=== PATIENT | female | born 1930 | race African-American/Black ===

== ENCOUNTER 2016-12-20 00:23 | Inpatient (IN) | payer MEDICARE, BC ==
[~2016-12-20] VITALS: Ht 160 cm; Wt 39.9 kg
[2016-12-20] VITALS (11 sets, daily range): BP systolic 113–173; BP diastolic 59–123
[~2016-12-20 00:23] MED LIST: AMLODIPINE BESYL5 MG ORAL; ASPIRIN81 M3 PO; ASPIRIN81 MG ORAL; ATORVASTATIN CA10 MG ORAL; ATORVASTATIN CA20 MG ORAL; CATAPRES0.1 MG ORAL; CATAPRES0.2 MG ORAL; CLONIDINE0.1 MG ORAL; HYDRALAZINE HCL25 M1 ORAL; LIPITOR10 MG ORAL; LISINOPRIL10 MG ORAL; LISINOPRIL20 MG ORAL; LISINOPRIL5 MG ORAL; METOPROLOL SUCC25 MG ORAL; METOPROLOL SUCC50 MG ORAL; MULTIVITAMINS1 EAC2 ORAL; ZITHROMAX250 MG ORAL
[2016-12-20] MEDS ORDERED: Morphine Sulfate 2mg/ml Inj IVP ONE (00:30)
--- NOTE | 2016-12-20 00:37 | Emergency Room Report ---
History of Present Illness General Chief Complaint: Abdominal Pain Source: Patient, Family Member, Medical Record, EMS Present Illness HPI Is an 86-year-old female with history hypertension. She presents with chief complaint of vomiting abdominal pain. Onset for 2 days. Vomiting is nonbloody nonbilious. No diarrhea. Pain is 8/10. Worse with movement. Decreased appetite. No fever or chills. Denies any chest pain. Allergies: Coded Allergies: NO KNOWN DRUG ALLERGIES (Unverified Allergy, Unknown, 07/14/14) Patient History Past Medical History: see triage record, old chart reviewed, HTN Past Surgical History: other Pertinent Family History: none Social History: Denies: smoking Last Menstrual Period: NONE Now: No Immunizations: other Reviewed Nursing Documentation: PMH: Agreed, PSxH: Agreed Nursing Documentation-PMH Hx Cardiac Problems: Yes Hx Hypertension: Yes Hx Cancer: No Hx Gastrointestinal Problems: No Hx Neurological Problems: Yes Hx Cerebrovascular Accident: Yes - Hx Weakness: Yes Review of Systems Eye: Denies: blurred vision, eye pain ENT: Denies: ear pain, nose congestion, throat swelling Respiratory: Denies: cough, shortness of breath Cardiovascular: Denies: chest pain, palpitations Gastrointestinal: Reports: abdominal pain, nausea, vomiting, Denies: diarrhea Musculoskeletal: Denies: back pain, joint pain Skin: Denies: rash Neurological: Denies: headache, numbness Endocrine: Denies: increased thirst, increased urine Hematologic/Lymphatic: Denies: easy bruising All Other Systems: negative except mentioned in HPI Physical Exam Vital Signs Date Time Temp Pulse Resp B/P Pulse Ox O2 Delivery O2 Flow Rate FiO2 12/20/16 00:16 99.3 104 18 127/66 98 Room Air vitals with tachycardia and low-grade fever Sp02 EP Interpretation: reviewed, normal General Appearance: alert, mild distress, thin, Chronically Ill Head: normocephalic, atraumatic Eyes: bilateral eye EOMI, bilateral eye PERRL ENT: hearing grossly normal, normal pharynx Neck: full range of motion, supple, no meningismus Respiratory: chest non-tender, lungs clear, normal breath sounds Cardiovascular #1: regular rate, rhythm, no murmur Gastrointestinal: normal bowel sounds, no mass, no organomegaly, no bruit, non- distended, tenderness - Diffuse Musculoskeletal: back normal, normal range of motion Neurologic: alert Psychiatric: mood/affect normal Skin: warm/dry Medical Decision Making Diagnostic Impression: Primary Impression: Abdominal pain of unknown etiology Additional Impressions: ACS (acute coronary syndrome) Accelerated hypertension Duodenitis Proteinuria Qualified Codes: R80.9 - Proteinuria, unspecified Dehydration UTI (urinary tract infection) Qualified Codes: N30.00 - Acute cystitis without hematuria ER Course Patient presents with abdominal pain and vomiting. This may be secondary to peptic ulcer disease, ACS, obstruction, acute abdomen to name a few. CT scan unremarkable except for possible peptic ulcer disease. EKG is abnormal with ST depression. First set of troponin negative. Patient has no chest pain. Aspirin given here. Blood pressure control. I discussed the case with Dr. Varela who will be admitting for Dr. Odell. Laboratory Tests Test 12/20/16 00:32 12/20/16 01:00 White Blood Count 13.1 K/UL (4.8-10.8) H Red Blood Count 5.33 M/UL (4.20-5.40) Hemoglobin 16.2 G/DL (12.0-16.0) H Hematocrit 47.2 % (37.0-47.0) H Mean Corpuscular Volume 89 FL (80-99) Mean Corpuscular Hemoglobin 30.4 PG (27.0-31.0) Mean Corpuscular Hemoglobin Concent 34.3 G/DL (32.0-36.0) Red Cell Distribution Width 11.5 % (11.6-14.8) L Platelet Count 310 K/UL (150-450) Mean Platelet Volume 5.8 FL (6.5-10.1) L Neutrophils (%) (Auto) % (45.0-75.0) Lymphocytes (%) (Auto) % (20.0-45.0) Monocytes (%) (Auto) % (1.0-10.0) Eosinophils (%) (Auto) % (0.0-3.0) Basophils (%) (Auto) % (0.0-2.0) Differential Total Cells Counted 100 Neutrophils % (Manual) 87 % (45-75) H Lymphocytes % (Manual) 7 % (20-45) L Monocytes % (Manual) 5 % (1-10) Eosinophils % (Manual) 0 % (0-3) Basophils % (Manual) 0 % (0-2) Band Neutrophils 1 % (0-8) Platelet Estimate Adequate Platelet Morphology Normal Red Blood Cell Morphology Normal Prothrombin Time 10.5 SEC (9.30-11.50) Prothromb Time International Ratio 1.0 (0.9-1.1) Activated Partial Thromboplast Time 25 SEC (23-33) Sodium Level 143 mEQ/L (135-145) Potassium Level 3.5 mEQ/L (3.4-4.9) Chloride Level 95 mEQ/L (98-107) L Carbon Dioxide Level 17 mEQ/L (20-30) L Anion Gap 31 (5-15) H Blood Urea Nitrogen 14 mg/dL (7-23) Creatinine 1.5 mg/dL (0.5-0.9) H Estimat Glomerular Filtration Rate mL/min (>60) Glucose Level 236 mg/dL (74-106) H Calcium Level 9.7 mg/dL (8.6-10.2) Total Bilirubin 0.7 mg/dL (0.0-1.2) Aspartate Amino Transf (AST/SGOT) 25 U/L (5-40) Alanine Aminotransferase (ALT/SGPT) 11 U/L (3-33) Alkaline Phosphatase 122 U/L (35-104) H Troponin I < 0.30 ng/mL (<=0.30) Total Protein 8.0 g/dL (6.6-8.7) Albumin 3.8 g/dL (3.5-5.2) Globulin 4.2 g/dL Albumin/Globulin Ratio 0.9 (1.0-2.7) L Lipase 27 U/L (< 60) Urine Color Pale yellow Urine Appearance Slightly cloudy Urine pH 6.5 (4.5-8.0) Urine Specific [place] 1.010 (1.005-1.035) Urine Protein 3+ (NEGATIVE) H Urine Glucose (UA) 4+ (NEGATIVE) H Urine Ketones 4+ (NEGATIVE) H Urine Occult Blood 2+ (NEGATIVE) H Urine Nitrite Negative (NEGATIVE) Urine Bilirubin Negative (NEGATIVE) Urine Urobilinogen Normal MG/DL (0.0-1.0) Urine Leukocyte Esterase 3+ (NEGATIVE) H Urine RBC 2-4 /HPF (0 - 2) H Urine WBC 5-10 /HPF (0 - 2) H Urine Squamous Epithelial Cells Few /LPF (NONE/OCC) Urine Bacteria Few /HPF (NONE) Lab Results Impression labs unremarkable EKG Diagnostic Results Rate: tachycardiac Rhythm: NSR ST Segments: other - ST depression inferior laterally Rhythm Strip Diag. Results EP Interpretation: yes Rate: 100 Rhythm: NSR, no PVC's, no ectopy Chest X-Ray Diagnostic Results EP Interpretation: Yes Findings: no consolidation, no effusion, no pneumothorax, no acute cardiopulmonary disease Number of Views: 1 CT/MRI/US Diagnostic Results CT/MRI/US Diagnostic Results : Imaging Test Ordered: CT abdomen and pelvis Impression Read by radiologist. Inflammation of the duodenum and pancreas. No acute process. Last Vital Signs Date Time Temp Pulse Resp B/P Pulse Ox O2 Delivery O2 Flow Rate FiO2 12/20/16 00:16 99.3 104 18 127/66 98 Room Air Status: improved Disposition: ADMITTED INPATIENT Condition: Serious ZULEYMA COTTO M.D. December 20, 2016 00:37
[2016-12-20 00:54] LABS: MEAN CORPUSCULAR HEMOGLOBIN 30.4 PG (27.0-31.0); MEAN CORPUSCULAR HGB CONC 34.3 G/DL (32.0-36.0); MEAN CORPUSCULAR VOLUME 89 FL (80-99); MEAN PLATELET VOLUME 5.8 FL (6.5-10.1); PLATELET COUNT 310 K/UL (150-450); RED BLOOD COUNT 5.33 M/UL (4.20-5.40); RED CELL DISTRIBUTION WIDTH 11.5 % (11.6-14.8); WHITE BLOOD COUNT 13.1 K/UL (4.8-10.8)
[2016-12-20] MEDS ORDERED: Miralax 17gm pkt ORAL PRN ×2 (01:00→21:00)
[2016-12-20] MEDS ORDERED: Morphine Sulfate 2mg/ml Inj IVP PRN ×2 (01:00→15:00)
[2016-12-20] MEDS ORDERED: Nitroglycerin Subl 0.4mg tab (Bottle Of 25) SL PRN ×2 (01:00→15:00)
[2016-12-20] MEDS ORDERED: Mylanta II UD 30ml ORAL PRN ×2 (01:00→15:00)
[2016-12-20] MEDS ORDERED: Metoclopramide 10mg/2ml Inj IVP PRN ×2 (01:00→19:00)
[2016-12-20] MEDS ORDERED: LORazepam Inj 2mg/ml 1ml IV PRN ×2 (01:00→15:00)
[2016-12-20 01:08] LABS: PROTHROMBIN TIME 10.5 SEC (9.30-11.50)
[2016-12-20 01:14] LABS: ALANINE AMINOTRANSFERASE 11 U/L (3-33); ALBUMIN/GLOBULIN RATIO 0.9 (1.0-2.7); ANION GAP 31 (5-15); ASPARTATE AMINO TRANSFERASE 25 U/L (5-40); CALCIUM 9.7 mg/dL (8.6-10.2); CARBON DIOXIDE 17 mEQ/L (20-30); CHLORIDE 95 mEQ/L (98-107); CREATININE 1.5 mg/dL (0.5-0.9); HEMOLYSIS 25; LIPASE 27 U/L (< 60); POTASSIUM 3.5 mEQ/L (3.4-4.9); SODIUM 143 mEQ/L (135-145)
[2016-12-20 01:21] LABS: TROPONIN I < 0.30 ng/mL (<=0.30)
[2016-12-20 01:49] LABS: APPEARANCE,URINE SLIGHTLY CLOUDY; KETONES,URINE 4+ (NEGATIVE); LEUKOCYTE ESTERASE ,URINE 3+ (NEGATIVE); NITRITE,URINE NEGATIVE (NEGATIVE); PH,URINE 6.5 (4.5-8.0); PROTEIN,URINE 3+ (NEGATIVE); UROBILINOGEN,URINE NORMAL MG/DL (0.0-1.0)
[2016-12-20 01:55] LABS: BAND NEUTROPHILS % (MANUAL) 1 % (0-8); LYMPHOCYTES % (MANUAL) 7 % (20-45); NEUTROPHILS % (MANUAL) 87 % (45-75); TOTAL CELLS COUNTED 100
[2016-12-20 01:56] LABS: BASOPHILS % (MANUAL) 0 % (0-2); EOSINOPHILS % (MANUAL) 0 % (0-3); PLATELET ESTIMATE ADEQUATE; PLATELET MORPHOLOGY NORMAL
[2016-12-20 02:02] LABS: SQUAMOUS EPITHELIAL CELL,UR FEW /LPF (NONE/OCC)
[2016-12-20 02:03] LABS: BACTERIA,URINE FEW /HPF
[2016-12-20] MEDS ORDERED: cefTRIAXone 1 GM in NS 55 ML IVPB ONE (02:15)
[2016-12-20] MEDS ORDERED: Pantoprazole Inj IVP ONE (02:30)
[2016-12-20] MEDS ORDERED: D5 1/2NS 1,000 ML IV SCH (04:00)
--- NOTE | 2016-12-20 08:56 | Cardiology Progress Note ---
Assessment/Plan Assessment/Plan The patient is seen and examined, full consult note is dictated. Objective Last 24 Hour Vital Signs Date Time Temp Pulse Resp B/P Pulse Ox O2 Delivery O2 Flow Rate FiO2 12/20/16 08:07 121 162/123 12/20/16 08:07 162/123 12/20/16 07:40 96.4 121 18 162/123 96 Room Air 12/20/16 04:00 112 12/20/16 03:11 99.3 113 18 157/110 99 Room Air 12/20/16 03:09 99.3 113 18 157/110 99 Room Air 12/20/16 02:20 173/120 12/20/16 01:08 99.3 12/20/16 00:25 99.3 130 18 173/120 99 Room Air 12/20/16 00:16 99.3 104 18 127/66 98 Room Air Intake and Output 12/19/16 12/20/16 19:00 07:00 Intake Total 1190 ml Balance 1190 ml Intake IV Total 1190 ml # Voids 3 Laboratory Tests Test 12/20/16 00:32 12/20/16 01:00 12/20/16 05:30 White Blood Count 13.1 K/UL (4.8-10.8) H Red Blood Count 5.33 M/UL (4.20-5.40) Hemoglobin 16.2 G/DL (12.0-16.0) H Hematocrit 47.2 % (37.0-47.0) H Mean Corpuscular Volume 89 FL (80-99) Mean Corpuscular Hemoglobin 30.4 PG (27.0-31.0) Mean Corpuscular Hemoglobin Concent 34.3 G/DL (32.0-36.0) Red Cell Distribution Width 11.5 % (11.6-14.8) L Platelet Count 310 K/UL (150-450) Mean Platelet Volume 5.8 FL (6.5-10.1) L Neutrophils (%) (Auto) % (45.0-75.0) Lymphocytes (%) (Auto) % (20.0-45.0) Monocytes (%) (Auto) % (1.0-10.0) Eosinophils (%) (Auto) % (0.0-3.0) Basophils (%) (Auto) % (0.0-2.0) Differential Total Cells Counted 100 Neutrophils % (Manual) 87 % (45-75) H Lymphocytes % (Manual) 7 % (20-45) L Monocytes % (Manual) 5 % (1-10) Eosinophils % (Manual) 0 % (0-3) Basophils % (Manual) 0 % (0-2) Band Neutrophils 1 % (0-8) Platelet Estimate Adequate Platelet Morphology Normal Red Blood Cell Morphology Normal Prothrombin Time 10.5 SEC (9.30-11.50) Prothromb Time International Ratio 1.0 (0.9-1.1) Activated Partial Thromboplast Time 25 SEC (23-33) Sodium Level 143 mEQ/L (135-145) Potassium Level 3.5 mEQ/L (3.4-4.9) Chloride Level 95 mEQ/L (98-107) L Carbon Dioxide Level 17 mEQ/L (20-30) L Anion Gap 31 (5-15) H Blood Urea Nitrogen 14 mg/dL (7-23) Creatinine 1.5 mg/dL (0.5-0.9) H Estimat Glomerular Filtration Rate mL/min (>60) Glucose Level 236 mg/dL (74-106) H Calcium Level 9.7 mg/dL (8.6-10.2) Total Bilirubin 0.7 mg/dL (0.0-1.2) Aspartate Amino Transf (AST/SGOT) 25 U/L (5-40) Alanine Aminotransferase (ALT/SGPT) 11 U/L (3-33) Alkaline Phosphatase 122 U/L (35-104) H Troponin I < 0.30 ng/mL (<=0.30) Total Protein 8.0 g/dL (6.6-8.7) Albumin 3.8 g/dL (3.5-5.2) Globulin 4.2 g/dL Albumin/Globulin Ratio 0.9 (1.0-2.7) L Lipase 27 U/L (< 60) Urine Color Pale yellow Urine Appearance Slightly cloudy Urine pH 6.5 (4.5-8.0) Urine Specific [place] 1.010 (1.005-1.035) Urine Protein 3+ (NEGATIVE) H Urine Glucose (UA) 4+ (NEGATIVE) H Urine Ketones 4+ (NEGATIVE) H Urine Occult Blood 2+ (NEGATIVE) H Urine Nitrite Negative (NEGATIVE) Urine Bilirubin Negative (NEGATIVE) Urine Urobilinogen Normal MG/DL (0.0-1.0) Urine Leukocyte Esterase 3+ (NEGATIVE) H Urine RBC 2-4 /HPF (0 - 2) H Urine WBC 5-10 /HPF (0 - 2) H Urine Squamous Epithelial Cells Few /LPF (NONE/OCC) Urine Bacteria Few /HPF (NONE) Stool Occult Blood Pending SHAYY SALAS December 20, 2016 08:56
[2016-12-20] MEDS ORDERED: Aspirin Baby 81mg ORAL SCH (09:00)
[2016-12-20] MEDS ORDERED: Heparin 5000 units/ml inj SUBQ SCH (09:00)
[2016-12-20] MEDS ORDERED: HydrALAZINE 25mg tab ORAL SCH ×2 (09:00→21:00)
[2016-12-20] MEDS ORDERED: Pantoprazole Inj IV SCH (09:00)
--- NOTE | 2016-12-20 09:32 | Diagnostic Imaging Report ---
Indication: Abdominal pain Technique: Spiral acquisitions obtained through the abdomen and pelvis. No oral contrast utilized, per emergency room physician request No IV contrast utilized, per emergency room physician request.. Multiplanar reconstructions were generated. Total dose length product 605 mGycm. CTDIvol(s) 13 mGy. Dose reduction achieved using automated exposure control Comparison: None Findings: Lack of oral contrast limits assessment of the GI tract There are colonic diverticula. No evidence of diverticulitis. The appendix is not definitely demonstrated, but there are no findings to suggest acute appendicitis. No small bowel distention. No free or loculated intraperitoneal air or fluid is evident. The distal esophagus demonstrates a small sliding-type hernia. There is equivocal slight infiltration of the fat adjacent to the second portion of the duodenum and pancreatic head.. Lack of IV contrast limits assessment of the solid organs. There is a 2 cm low-attenuation lesion within segment 6 of the liver which demonstrates nonspecific attenuation. The gallbladder, bile ducts, pancreas, are unremarkable. There is fullness to the right adrenal. There is a fat attenuation mass with peripheral calcification in the left adrenal which measures approximately 1 cm diameter. The kidneys appear somewhat atrophic with lobulated contours. No evidence of calculi, hydronephrosis, hydroureter The spleen is unremarkable. There is a 7 mm nodule in the abdominal fat just lateral to the proximal descending colon, a few centimeters from the spleen likely representing an accessory splenule. There is focal saccular ectasia of the distal abdominal aorta, which is not frankly aneurysmal. The uterus is absent, presumably postsurgically. No pelvic mass or adenopathy. No retroperitoneal or mesenteric mass or adenopathy. The bones demonstrate degenerative changes of the thoracic and lumbar spine. The bones are osteoporotic. Included lung bases are clear except for some atelectasis or scarring in the posterior costophrenic sulci bilaterally. Impression: Equivocal slight infiltration of the periduodenal/peripancreatic fat. If real, could indicate duodenitis, peptic ulcer disease, or pancreatitis. Correlate with clinical findings No definite acute process otherwise Nonspecific 2 cm low-attenuation lesion within segment 6 of the liver. This could represent a complex cyst, versus solid mass or hemangioma. 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 No evidence of diverticulitis Other findings as noted, including osteoporotic changes, degenerative spondylosis, posterior basilar pulmonary atelectasis or scarring, surgically absent uterus, hiatal hernia This agrees with the preliminary interpretation provided overnight by [facility] teleradiology service. The CT scanner at [facility] is accredited by the [employer] [place] and the scans are performed using protocols designed to limit radiation exposure to as low as reasonably achievable to attain images of sufficient resolution adequate for diagnostic evaluation.
[2016-12-20 10:24] LABS: TROPONIN I < 0.30 ng/mL (<=0.30)
[2016-12-20] MEDS ORDERED: Propofol 10mg/ml 20ml IV ONE (11:00)
[2016-12-20] MEDS ORDERED: Lidocaine 1% MPF 10mg/ml 5ml ONE (11:00)
--- NOTE | 2016-12-20 11:09 | Anethesia Preoperative Eval ---
Anesthesia Pre-op PMH/ROS General Date of Evaluation: December 20, 2016 Anesthesiologist: Kenan ASA Score: ASA 3 Mallampati Score Class I : Soft palate, uvula, fauces, pillars visible Class II: Soft palate, uvula, fauces visible Class III: Soft palate, base of uvula visible Class IV: Only hard plate visible Mallampati Classification: Class II Surgeon: Geovany Diagnosis: nausea/vomitting Surgical Procedure: EGD Anesthesia History: none Family History: no anesthesia problems Allergies: Coded Allergies: NO KNOWN DRUG ALLERGIES (Unverified Allergy, Unknown, 07/14/14) Medications: see eMAR Past Medical History Cardiovascular: Reports: CAD, HTN, other - HF, Denies: MD, arrhythmia, valve dz Pulmonary: Denies: COPD, JUAN DANIEL, asthma, other Gastrointestinal/Genitourinary: Reports: CRI, GERD, Denies: ESRD, other Neurologic/Psychiatric: Reports: CVA, Denies: TIA, dementia, depression/anxiety, other Endocrine: Denies: DM, hypothyroidism, other, steroids HEENT: Denies: [place] (L), [place] (R), cataract (L), cataract (R), glaucoma, other Hematology/Immune: Denies: DVT, anemia, bleeding disorder, other Musculoskeletal/Integumentary: Reports: DJD, OA, Denies: DDD, RA, edema, other PSxH Narrative: Unable to asess Anesthesia Pre-op Phys. Exam Physician Exam Last Vital Signs Date Time Temp Pulse Resp B/P Pulse Ox O2 Delivery O2 Flow Rate FiO2 12/20/16 08:07 121 162/123 12/20/16 07:40 96.4 18 96 Room Air Constitutional: NAD Cardiovascular: other - taachy Respiratory: other - bilateral crackles Airway Exam Mallampati Score: Class II MO: limited ROM: limited Anesthesia Pre-op A/P Labs Hematology Test 12/20/16 00:32 White Blood Count 13.1 K/UL (4.8-10.8) H Red Blood Count 5.33 M/UL (4.20-5.40) Hemoglobin 16.2 G/DL (12.0-16.0) H Hematocrit 47.2 % (37.0-47.0) H Mean Corpuscular Volume 89 FL (80-99) Mean Corpuscular Hemoglobin 30.4 PG (27.0-31.0) Mean Corpuscular Hemoglobin Concent 34.3 G/DL (32.0-36.0) Red Cell Distribution Width 11.5 % (11.6-14.8) L Platelet Count 310 K/UL (150-450) Mean Platelet Volume 5.8 FL (6.5-10.1) L Neutrophils (%) (Auto) % (45.0-75.0) Lymphocytes (%) (Auto) % (20.0-45.0) Monocytes (%) (Auto) % (1.0-10.0) Eosinophils (%) (Auto) % (0.0-3.0) Basophils (%) (Auto) % (0.0-2.0) Differential Total Cells Counted 100 Neutrophils % (Manual) 87 % (45-75) H Lymphocytes % (Manual) 7 % (20-45) L Monocytes % (Manual) 5 % (1-10) Eosinophils % (Manual) 0 % (0-3) Basophils % (Manual) 0 % (0-2) Band Neutrophils 1 % (0-8) Platelet Estimate Adequate Platelet Morphology Normal Red Blood Cell Morphology Normal Coagulation Test 12/20/16 00:32 Prothrombin Time 10.5 SEC (9.30-11.50) Prothromb Time International Ratio 1.0 (0.9-1.1) Activated Partial Thromboplast Time 25 SEC (23-33) Chemistry Test 12/20/16 00:32 12/20/16 09:45 Sodium Level 143 mEQ/L (135-145) Potassium Level 3.5 mEQ/L (3.4-4.9) Chloride Level 95 mEQ/L (98-107) L Carbon Dioxide Level 17 mEQ/L (20-30) L Anion Gap 31 (5-15) H Blood Urea Nitrogen 14 mg/dL (7-23) Creatinine 1.5 mg/dL (0.5-0.9) H Estimat Glomerular Filtration Rate mL/min (>60) Glucose Level 236 mg/dL (74-106) H Calcium Level 9.7 mg/dL (8.6-10.2) Total Bilirubin 0.7 mg/dL (0.0-1.2) Aspartate Amino Transf (AST/SGOT) 25 U/L (5-40) Alanine Aminotransferase (ALT/SGPT) 11 U/L (3-33) Alkaline Phosphatase 122 U/L (35-104) H Troponin I < 0.30 ng/mL (<=0.30) < 0.30 ng/mL (<=0.30) Total Protein 8.0 g/dL (6.6-8.7) Albumin 3.8 g/dL (3.5-5.2) Globulin 4.2 g/dL Albumin/Globulin Ratio 0.9 (1.0-2.7) L Lipase 27 U/L (< 60) Risk Assessment & Plan Assessment: ASA III Plan: MAC Status Change Before Surgery: No Pre-Antibiotics Drug: N/A JOE BHAGAT M.D. December 20, 2016 11:09
--- NOTE | 2016-12-20 11:20 | Pre-Procedure Note/Attestation ---
Pre-Procedure Note/Attestation Complete Prior to Procedure Planned Procedure: not applicable Procedure Narrative: egd Indications for Procedure Pre-Operative Diagnosis: pud Attestation I attest that I discussed the nature of the procedure; its benefits; risks and complications; and alternatives (and the risks and benefits of such alternatives ), prior to the procedure, with the patient (or the patient's legal dental detail representative). I attest that, if there was a reasonable possibility of needing a blood transfusion, the patient (or the patient's legal dental detail representative) was given the [facility] standardized written summary, pursuant to the Efraín Grey Blood Safety Act ([place] Health and Safety Code # 1645, as amended). I attest that I re-evaluated the patient just prior to the surgery and that there has been no change in the patient's H&P, except as documented below: MARVIN HATFIELD December 20, 2016 11:20
--- NOTE | 2016-12-20 11:32 | Endoscopy Procedure Note ---
Endoscopy Procedure Note Indication for Procedure: Procedures Performed: EGD Operative Findings/Diagnosis: same Specimen: yes Pt Tolerated Procedure Well: Yes Estimated Blood Loss: none Anesthesiologist: billy Anesthesia: MAC Implant(s) used?: No 50 yrs or older w/o bx or poly: Not Applicable 10yrs. F/U not recommended: Not Applicable MARVIN HATFIELD December 20, 2016 11:32
--- NOTE | 2016-12-20 11:44 | Immediate Post-Op Evaluation ---
Immediate Post-Op Evalulation Immediate Post-Op Evalulation Procedure: EGD Date of Evaluation: December 20, 2016 Time of Evaluation: 11:46 IV Fluids: 97.2 Blood Products: 0 Estimated Blood Loss: 0 Urinary Output: 0 Blood Pressure Systolic: 166 Blood Pressure Diastolic: 88 Pulse Rate: 91 Respiratory Rate: 16 O2 Sat by Pulse Oximetry: 100 Temperature (Fahrenheit): 97.2 Pain Score (1-10): 0 Nausea: No Vomiting: No Complications 0 Patient Status: awake, reacts, patent, none Hydration Status: adequate Drug: N/A JOE BHAGAT M.D. December 20, 2016 11:44
--- NOTE | 2016-12-20 12:24 | Consultation ---
History of Present Illness General Date patient seen: December 20, 2016 Chief Complaint: Abdominal Pain Referring physician: Dr. Lopez Present Illness HPI 86-year-old female with history hypertension presented to [facility] [place] [facility] with chief complaint of vomiting abdominal pain for 2 days. Vomiting is nonbloody nonbilious. No diarrhea. Pain is 8/10. Worse with movement. Decreased appetite. No fever or chills. Her BP was elevated in ER, therefore she was admitted to telemetry. Allergies: Coded Allergies: NO KNOWN DRUG ALLERGIES (Unverified Allergy, Unknown, 07/14/14) Medication History Scheduled Aspirin* (Aspirin*), 81 MG ORAL DAILY Atorvastatin Calcium* (Lipitor*), 10 MG ORAL BEDTIME Atorvastatin Calcium* (Lipitor*), Unknown Dose ORAL BEDTIME, (Reported) Clonidine Hcl* (Catapres*), 0.2 MG ORAL BID, (Reported) Hydralazine Hcl* (Hydralazine Hcl*), 25 MG ORAL BID Lisinopril (Lisinopril*), 40 MG ORAL DAILY Metoprolol Succinate* (Metoprolol Succinate*), 25 MG ORAL Q12HR Scheduled PRN Clonidine HCl (Clonidine HCl), 0.1 MG ORAL Q12H PRN Discontinued Medications Azithromycin* (Zithromax*), 250 MG ORAL DAILY Discontinued Reason: Pt stopped taking med Clonidine Hcl* (Catapres*), Unknown Dose ORAL EVERY 6 HOURS, (Reported) Discontinued Reason: Pt stopped taking med Lisinopril (Lisinopril*), Unknown Dose ORAL DAILY, (Reported) Discontinued Reason: Pt stopped taking med Lisinopril* (Lisinopril*), 40 MG ORAL DAILY, (Reported) Discontinued Reason: Pt stopped taking med Multivitamins* (Multivitamins*), 1 TAB ORAL DAILY, (Reported) Discontinued Reason: Pt stopped taking med Patient History Healthcare decision maker Resuscitation status Full Code Advanced Directive on File Past Medical/Surgical History Past Medical/Surgical History: (1) HTN (hypertension) Review of Systems All Other Systems: negative except mentioned in HPI Physical Exam General Appearance: WD/WN Lines, tubes and drains: peripheral HEENT: normocephalic, atraumatic Neck: non-tender, normal alignment Respiratory/Chest: chest wall non-tender, lungs clear Breasts: no masses Cardiovascular/Chest: normal peripheral pulses, normal rate Abdomen: normal bowel sounds Genitourinary/Rectal: normal rectal exam Extremities: normal range of motion Skin Exam: normal pigmentation Neurologic: pca II-XII grossly normal Lymphatic: anterior cervical Last 24 Hour Vital Signs Date Time Temp Pulse Resp B/P Pulse Ox O2 Delivery O2 Flow Rate FiO2 12/20/16 12:05 98.0 82 17 157/85 100 Nasal Cannula 3.0 12/20/16 11:50 93 15 155/85 100 Nasal Cannula 3.0 12/20/16 11:46 89 13 153/88 100 Simple Mask 6.0 12/20/16 11:44 91 16 100 12/20/16 11:41 97.5 95 18 166/88 100 Simple Mask 6.0 12/20/16 11:15 97.7 96 18 146/86 96 Room Air 12/20/16 08:07 121 162/123 12/20/16 08:07 162/123 12/20/16 08:00 115 12/20/16 07:40 96.4 121 18 162/123 96 Room Air 12/20/16 04:00 112 12/20/16 03:11 99.3 113 18 157/110 99 Room Air 12/20/16 03:09 99.3 113 18 157/110 99 Room Air 12/20/16 02:20 173/120 12/20/16 01:08 99.3 12/20/16 00:25 99.3 130 18 173/120 99 Room Air 12/20/16 00:16 99.3 104 18 127/66 98 Room Air Intake and Output 12/19/16 12/20/16 19:00 07:00 Intake Total 1190 ml Balance 1190 ml Intake IV Total 1190 ml # Voids 3 Laboratory Tests Test 12/20/16 00:32 12/20/16 01:00 12/20/16 05:30 12/20/16 09:45 White Blood Count 13.1 K/UL (4.8-10.8) H Red Blood Count 5.33 M/UL (4.20-5.40) Hemoglobin 16.2 G/DL (12.0-16.0) H Hematocrit 47.2 % (37.0-47.0) H Mean Corpuscular Volume 89 FL (80-99) Mean Corpuscular Hemoglobin 30.4 PG (27.0-31.0) Mean Corpuscular Hemoglobin Concent 34.3 G/DL (32.0-36.0) Red Cell Distribution Width 11.5 % (11.6-14.8) L Platelet Count 310 K/UL (150-450) Mean Platelet Volume 5.8 FL (6.5-10.1) L Neutrophils (%) (Auto) % (45.0-75.0) Lymphocytes (%) (Auto) % (20.0-45.0) Monocytes (%) (Auto) % (1.0-10.0) Eosinophils (%) (Auto) % (0.0-3.0) Basophils (%) (Auto) % (0.0-2.0) Differential Total Cells Counted 100 Neutrophils % (Manual) 87 % (45-75) H Lymphocytes % (Manual) 7 % (20-45) L Monocytes % (Manual) 5 % (1-10) Eosinophils % (Manual) 0 % (0-3) Basophils % (Manual) 0 % (0-2) Band Neutrophils 1 % (0-8) Platelet Estimate Adequate Platelet Morphology Normal Red Blood Cell Morphology Normal Prothrombin Time 10.5 SEC (9.30-11.50) Prothromb Time International Ratio 1.0 (0.9-1.1) Activated Partial Thromboplast Time 25 SEC (23-33) Sodium Level 143 mEQ/L (135-145) Potassium Level 3.5 mEQ/L (3.4-4.9) Chloride Level 95 mEQ/L (98-107) L Carbon Dioxide Level 17 mEQ/L (20-30) L Anion Gap 31 (5-15) H Blood Urea Nitrogen 14 mg/dL (7-23) Creatinine 1.5 mg/dL (0.5-0.9) H Estimat Glomerular Filtration Rate mL/min (>60) Glucose Level 236 mg/dL (74-106) H Calcium Level 9.7 mg/dL (8.6-10.2) Total Bilirubin 0.7 mg/dL (0.0-1.2) Aspartate Amino Transf (AST/SGOT) 25 U/L (5-40) Alanine Aminotransferase (ALT/SGPT) 11 U/L (3-33) Alkaline Phosphatase 122 U/L (35-104) H Troponin I < 0.30 ng/mL (<=0.30) < 0.30 ng/mL (<=0.30) Total Protein 8.0 g/dL (6.6-8.7) Albumin 3.8 g/dL (3.5-5.2) Globulin 4.2 g/dL Albumin/Globulin Ratio 0.9 (1.0-2.7) L Lipase 27 U/L (< 60) Urine Color Pale yellow Urine Appearance Slightly cloudy Urine pH 6.5 (4.5-8.0) Urine Specific [place] 1.010 (1.005-1.035) Urine Protein 3+ (NEGATIVE) H Urine Glucose (UA) 4+ (NEGATIVE) H Urine Ketones 4+ (NEGATIVE) H Urine Occult Blood 2+ (NEGATIVE) H Urine Nitrite Negative (NEGATIVE) Urine Bilirubin Negative (NEGATIVE) Urine Urobilinogen Normal MG/DL (0.0-1.0) Urine Leukocyte Esterase 3+ (NEGATIVE) H Urine RBC 2-4 /HPF (0 - 2) H Urine WBC 5-10 /HPF (0 - 2) H Urine Squamous Epithelial Cells Few /LPF (NONE/OCC) Urine Bacteria Few /HPF (NONE) Stool Occult Blood Pending Height (Feet): 5 Height (Inches): 3.00 Weight (Pounds): 88 Medications Current Medications Medications (Trade) Dose Ordered Sig/Shivani Route PRN Reason Start Time Stop Time Status Last Admin Dose Admin Acetaminophen (Tylenol) 650 mg Q4H PRN ORAL fever 12/20/16 01:00 01/19/17 00:59 Al Hydroxide/Mg Hydroxide (Mylanta II) 30 ml Q6H PRN ORAL dyspepsia 12/20/16 01:00 01/19/17 00:59 Aspirin (ASA) 81 mg DAILY ORAL 12/20/16 09:00 01/19/17 08:59 12/20/16 08:07 Atorvastatin Calcium (Lipitor) 10 mg BEDTIME ORAL 12/20/16 21:00 01/19/17 20:59 Clonidine HCl (Catapres) 0.1 mg Q4H PRN ORAL sbp more then 160 12/20/16 01:00 01/19/17 00:59 Dextrose (Dextrose 50%) STAT PRN IV Hypoglycemia 12/20/16 01:00 01/19/17 00:59 Dextrose/Sodium Chloride (D5 0.45% NS) 1,000 ml @ 75 mls/hr [id number] IV 12/20/16 04:00 01/19/17 03:59 12/20/16 05:12 Diphenhydramine HCl (Benadryl) 25 mg Q6H PRN ORAL Itching/Pruritis 12/20/16 01:00 01/19/17 00:59 Heparin Sodium (Porcine) (Heparin 5000 units/ml) 5,000 units EVERY 12 HOURS SUBQ 12/20/16 09:00 01/19/17 08:59 12/20/16 08:10 Hydralazine HCl (Apresoline) 25 mg BID ORAL 12/20/16 09:00 01/19/17 08:59 12/20/16 08:07 Lorazepam (Ativan 2mg/ml 1ml) 1 mg Q4H PRN IV agitation 12/20/16 01:00 12/27/16 00:59 Metoclopramide HCl (Reglan) 10 mg Q6H PRN IVP servere [place] 12/20/16 01:00 01/19/17 00:59 Metoprolol Succinate (Toprol XL) 25 mg Q12HR ORAL 12/20/16 09:00 01/19/17 08:59 12/20/16 08:07 Morphine Sulfate (Morphine Sulfate) 2 mg Q4H PRN IVP severe Pain (Pain Scale 7-10) 12/20/16 01:00 12/27/16 00:59 Nitroglycerin (Ntg) 0.4 mg Q5M X 3 DOSES PRN SL Prn Chest Pain 12/20/16 01:00 01/19/17 00:59 Ondansetron HCl (Zofran) 4 mg Q6H PRN IVP Nausea & Vomiting 12/20/16 01:00 01/19/17 00:59 12/20/16 05:28 Pantoprazole (Protonix) 40 mg DAILY IV 12/20/16 09:00 01/19/17 08:59 12/20/16 08:08 Polyethylene Glycol (Miralax) 17 gm HSPRN PRN ORAL Constipation 12/20/16 01:00 01/19/17 00:59 Promethazine HCl (Phenergan) 25 mg Q8H PRN IV refractory nausea 12/20/16 01:00 01/19/17 00:59 Temazepam (Restoril) 15 mg HSPRN PRN ORAL Insomnia 12/20/16 01:00 12/27/16 00:59 Assessment/Plan Problem List: (1) Accelerated hypertension ICD Codes: I10 - Essential (primary) hypertension SNOMED: 62212886 (2) Intractable nausea and vomiting ICD Codes: R11.2 - Nausea with vomiting, unspecified SNOMED: 380234200, 929595718 (3) Intractable abdominal pain ICD Codes: R10.9 - Unspecified abdominal pain SNOMED: 45962670, 468933761 (4) Leukocytosis ICD Codes: D72.829 - Elevated white blood cell count, unspecified SNOMED: 574345508, 239126049 Assessment/Plan NPO telemetry monitoring treat BP with IV meds GI evaluation f/u wbc symptomatic treatment MILAGROS URIARTE December 20, 2016 12:24
--- NOTE | 2016-12-20 13:17 | Diagnostic Imaging Report ---
Indication: SOB Technique: One view of the chest Comparison: 05/27/2016 Findings: Lungs and pleural spaces are clear. Heart size is normal. Aorta is tortuous calcified and ectatic. Upper mediastinum is unremarkable. No significant change Impression: No acute process
--- NOTE | 2016-12-20 13:38 | 48 Hour Post Anesthesia Eval ---
Post Anesthesia Evaluation Procedure: EGD Date of Evaluation: December 20, 2016 Time of Evaluation: 13:35 Blood Pressure Systolic: 157 0: 85 Pulse Rate: 82 Respiratory Rate: 17 Temperature (Fahrenheit): 98 O2 Sat by Pulse Oximetry: 100 Airway: patent Nausea: No Vomiting: No Pain Intensity: 0 Hydration Status: adequate Cardiopulmonary Status: at baseline Mental Status/LOC: patient returned to baseline Post-Anesthesia Complications: 0 Follow-up care needed: N/A - further care as per primary team JOE BHAGAT M.D. December 20, 2016 13:38
[2016-12-20] MEDS ORDERED: Tubing IV Secondary IV ONE (14:01)
[2016-12-20] MEDS ORDERED: D5 1/2NS 1000ml IV ONE (14:01)
[2016-12-20] MEDS ORDERED: 1/2 NS 1000ml IV ONE (14:01)
[2016-12-20] MEDS: D5 1/2NS 1,000 ML IV SCH ×2 (14:39→22:03)
--- NOTE | 2016-12-20 15:39 | History & Physical ---
History and Physical History & Physicial job # [id number] Rad Odell MD December 20, 2016 15:39
[2016-12-20] MEDS: Pantoprazole Inj IV SCH (17:03)
[2016-12-20] MEDS: HydrALAZINE 50mg tab ORAL SCH (17:03)
--- NOTE | 2016-12-20 19:31 | Cardiology Report ---
APPROVED REPORT EXAM: Two-dimensional and M-mode echocardiogram with Doppler and color Doppler. INDICATION Cardiomyopathy M-Mode DIMENSIONS IVSd1.1 (0.7-1.1cm)Left Atrium (MM)3.7 (1.6-4.0cm) LVDd4.9 (3.5-5.6cm)Aortic Root3.2 (2.0-3.7cm) PWd0.7 (0.7-1.1cm)Aortic Cusp Exc.1.5 (1.5-2.0cm) LVDs3.8 (2.5-4.0cm) PWs0.9 cm Technically difficult study due to poor acoustic windows. Study quality precludes accurate assessment of regional wall motion. Normal left ventricular chamber size, systolic function and wall motion. Left ventricular ejection fraction estimated to be 60 %. Borderline mild left ventricular hypertrophy. Anterior Echo-free space, may be due to pericardial fat or effusion. All other cardiac chamber sizes are within normal limits. Mild focal aortic valve sclerosis with adequate cusp excursion. Mildly thickened mitral valve leaflets with normal excursion. Moderate mitral annulus and aortic root calcification. Pulmonic valve not well visualized. Normal tricuspid valve structure. IVC is normal in size with physiologic collapse. A color flow and spectral Doppler study was performed and revealed: Mild aortic regurgitation. Mild mitral regurgitation. Mitral diastolic velocities suggest reduced left ventricular relaxation (Grade I). Mild tricuspid regurgitation. Tricuspid systolic velocities suggests peak right ventricular systolic pressure of 30 mmHg. No pulmonic regurgitation present.
[2016-12-20] MEDS: Heparin 5000 units/ml inj SUBQ SCH (21:31)
[2016-12-21] VITALS (7 sets, daily range): BP systolic 113–172; BP diastolic 67–96
--- NOTE | 2016-12-21 00:16 | Procedure Note ---
DATE OF PROCEDURE: 12/20/2016 SURGEON: Asif Cardenas M.D. PROCEDURE: Upper endoscopy with biopsy. ANESTHESIOLOGIST: . INSTRUMENT: Olympus adult flexible upper endoscope. INDICATION: Gastric ulcer. REASON FOR PROCEDURE: The procedure, risks, benefits, and possible consequences, including hemorrhage, aspiration, perforation and infection, and alternative treatments, were explained to the patient/legal guardian by Dr. Asif Cardenas and the patient/legal guardian understood and accepted these risks. DESCRIPTION OF PROCEDURE: After informed consent was obtained and the patient was adequately sedated, Olympus upper endoscope was advanced from the mouth into the second portion of the duodenum and retroflexion was performed in the stomach. The patient had evidence of distal esophageal ring, small hiatal hernia, and diffuse gastritis. Random biopsy from antrum was obtained to rule out H. pylori infection. The patient also had one ulcer along the greater curvature at the junction of the body and antrum measuring less than a centimeter, not actively bleeding, no adherent clot, and no visible vessel. The patient tolerated the procedure very well without any complication. SUMMARY OF FINDINGS: 1. Small hiatal hernia. 2. Distal esophageal ring. 3. Gastric ulcer. 4. Gastritis. PLAN: 1. PPI daily. 2. Follow up biopsy results and treat for H. pylori if it is positive. 3. Avoid NSAIDs. I want to thank, Dr. Rad Odell, for this kind referral. Asif Cardenas M.D. DR: SVEN JOB#: [id number] CC: Rad Odell M.D.; Fax#: [phone]
--- NOTE | 2016-12-21 00:32 | History and Physical Report ---
DATE OF ADMISSION: 12/20/2016 CHIEF COMPLAINT: Abdominal pain. HISTORY OF PRESENT ILLNESS: This is an 86-year-old female with past medical history significant for hypertension, dyslipidemia, history of chronic kidney disease stage 3, prior history of CVA, and history of hysterectomy, who was presented to the hospital complained about abdominal pain associated with nausea and vomiting over past 48 hours. Vomiting was nonbloody and nonbilious. No diarrhea. There was 8/10 intensity worsening with movement and the patient has been decreased appetite. Denies any fever or chills. Upon arrival to the emergency room, she was noted to have elevated blood pressure and shortly after initial evaluation in the emergency, the patient was admitted to the hospital with accelerated hypertension as well as abdominal pain possible due to the peptic ulcer disease. PAST MEDICAL HISTORY/PAST SURGICAL HISTORY: As above. History of hypertension, chronic kidney disease stage 3, dyslipidemia, history CVA, and history hysterectomy. MEDICATIONS AT HOME: Significant for aspirin, atorvastatin, clonidine, hydralazine, Lipitor, and metoprolol. ALLERGIES: No known drug allergies. SOCIAL HISTORY: Denies any smoking, alcohol, or drugs. FAMILY HISTORY: Noncontributory. REVIEW OF SYSTEMS: Mostly as above. Denies any dysuria, frequency, or hematuria. Complained of nausea and vomiting. Denies any hemoptysis or hematochezia. Denies any bright red per rectum. Denies any loss of consciousness. Complained about poor appetite. Denies any fall. Denies any history of a seizure disorder. Denies any suicidal or homicidal ideation. PHYSICAL EXAMINATION: VITAL SIGNS: On admission from the ER is significant for temperature 99.3 degrees, pulse of 104, respiration 18, and blood pressure initially 127/77, and a repeat one was 173/120. GENERAL: The patient is awake and responsive, no acute distress. HEAD AND NECK: Pupils are reactive to light. EOMs are intact. NECK: Supple. No JVD. LUNGS: Good air entry. No wheezing or rales. HEART: S1 and S2. Distant heart sounds. No murmurs or gallops. ABDOMEN: Soft. Tenderness in the epigastric area. No rebound tenderness. No fluid shift. Lower abdominal area, surgical scar over suprapubic area was noted from prior surgery. EXTREMITIES: No cyanosis, clubbing, or edema. Scar was noted on the right lower extremity from the prior wound. NEUROLOGIC: Cranial nerves II through XII are grossly intact. The patient is moving all extremities. Facial asymmetry was noted. She has a prior history of stroke. PSYCHIATRIC: Mood and affect is intact. LABORATORY AND DIAGNOSTIC DATA: On admission from the ER, a chest x-ray, no acute process. CT of abdomen and pelvic was noted to be slight infiltrate as well as peripancreatic fat and possible due to duodenitis, peptic ulcer disease, or pancreatitis. No definitive acute process was otherwise nonspecific 2 cm low attenuation lesion within the segment of the liver, this could represent a complex cyst versus solid mass or hemangioma. Consider ultrasound for further evaluation. Left adrenal presumed small 1 cm mildly low lipoma focal ectasia of the distal bowel aorta, colonic diverticulitis. No evidences of diverticulosis and no history of diverticulitis. 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 UA, +2 protein, +4 glucose, ketone +4, +2 occult, nitrite negative, +3 leukocyte, 2 to 10 WBC, and 2 to 4 RBC. PT of 10, INR 1.0, and PTT of 25. Stool for occult blood is positive. First and second troponin less than 3.0. Sodium 143, potassium 3.5, chloride 95, bicarb 17, BUN 14, creatinine 1.5, and glucose 236. Estimated GFR is not performed. Alkaline phosphatase was 122. Albumin is 2.8. Lipase is 27. WBC of 13, hemoglobin 16, hematocrit 47, and platelet 310,000. ASSESSMENT: 1. Abdominal pain, possibly due to the peptic ulcer disease, duodenitis, and gastritis. 2. Hypertension with accelerated hypertension. 3. Dyslipidemia. 4. History of stroke. 5. History of chronic kidney disease, stage 2 to 3. 6. Urinary tract infection. 7. Anemia with stool occult positive. PLAN: Admit the patient to telemetry. We will follow up with the laboratory. The patient is being seen by Dr. Varela, Pulmonary Critical Care, Dr. Corcoran, from Cardiology, and Dr. Cardenas from Gastroenterology. Discussed with the daughter extensively at bedside. Code status is Full Code. DVT prophylaxis and SCD. Broad-spectrum antibiotic with Rocephin. We will follow up with the cultures. Follow up with Dr. Cardenas. RECOMMENDATION: We will hold off on aspirin at this time. Continue Protonix and atorvastatin. Monitor blood pressure very closely and IV hydration. Rad Odell M.D. DR: Gregory JOB#: [id number] CC: JAILENE
[2016-12-21] MEDS: cefTRIAXone 1 GM in D5W 55 ML IVPB SCH (02:07)
--- NOTE | 2016-12-21 06:31 | Consultation ---
DATE OF CONSULTATION: 12/20/2016 CARDIOLOGY CONSULTATION CONSULTING PHYSICIAN: Gil Corcoran M.D. REFERRING PHYSICIAN: Juan José Varela M.D. ADDITIONAL REFERRING PHYSICIAN: Rad Odell M.D. REASON FOR CONSULTATION: Management of tachycardia. HISTORY OF PRESENT ILLNESS: The patient is a very unfortunate 86-year-old, female, who presents to the hospital with chief complaints of vomiting, nausea and abdominal pain for about two days. In the emergency department, the patient's blood pressure was 127/66 and heart rate was 104. Cardiology consultation was made at request of Dr. Varela for evaluation of this condition. Of note, the patient has a history of cerebrovascular accident in the past as well as hypertension and is therefore high risk for having coronary artery disease. At the bedside, the patient denies any chest pain or shortness of breath. Although, she is a poor historian. A 12-lead electrocardiogram showed evidence of sinus tachycardia, but no ST and T-wave abnormalities. PAST MEDICAL HISTORY: 1. History of cerebrovascular accident in 1991. 2. History of hypertension. 3. History of cardiac disease. The data is unknown. PAST SURGICAL HISTORY: None. FAMILY HISTORY: No premature coronary artery disease in the first-degree relatives. HABITS: Denies any history of tobacco, alcohol, or illicit drug use. REVIEW OF SYSTEMS: HEENT: Denies any headache, diplopia, or blurred vision. Constitutional: Complains of generalized weakness, but no fever, chills, or night sweats. Cardiovascular: Denies any chest pain or shortness of breath. No PND, orthopnea, leg swelling, or syncope. Pulmonary: Denies any cough, hemoptysis, or wheezing. Gastrointestinal: Complains of abdominal pain, nausea, and vomiting. No GI bleed. Genitourinary: Denies any hematuria, dysuria, or incontinence. Neurology: Denies any motor dysfunction, sensory deficit, or altered speech. PHYSICAL EXAMINATION: VITAL SIGNS: Blood pressure was 127/66, respirations 18, pulse 104, and temperature 99.1 degrees Fahrenheit. GENERAL: The patient is a very pleasant 86-year-old female, in no apparent respiratory distress, and awake. Answers to my question appropriately. HEENT: Atraumatic and normocephalic. Pupils are equal, round, and reactive to light and accommodation. Extraocular muscles intact. The patient had left facial droop. NECK: JVP is less than 5 cm. No carotid bruits. Carotid upstrokes 2+ bilaterally. CARDIOVASCULAR: Normal S1 and S2. Regular rate and rhythm. Tachycardiac. A 2/6 mid systolic murmur at left sternal border. PMI is at fourth intercoastal space at midclavicular line. LUNGS: Clear to auscultation bilaterally. ABDOMEN: Soft, nontender and nondistended. No hepatosplenomegaly. Positive bowel sounds. EXTREMITIES: No evidence of edema, clubbing, or cyanosis. LABORATORY AND DIAGNOSTIC FINDINGS: A 12-lead electrocardiogram showed sinus tachycardia with by depression suggestive of ischemia. WBC was 13.1, hemoglobin 16.2, hematocrit of 47.2, platelet count was 310,000. INR was 1.0. Sodium was 143, potassium 3.5, chloride 95, bicarbonate 17, BUN 14, creatinine 1.5, and glucose 236. Calcium is 9.7. Troponin I was less than 0.3. Lipase was 27. Urinalysis shows 5 to 10 WBC, 3+ leukocyte esterase, 4+ glucose, 4+ ketones and 2+ occult blood. Chest x-ray showed no active cardiopulmonary disease. ASSESSMENT AND PLAN: The patient is a very pleasant 86-year-old female, seen in Cardiology consultation at request of Dr. Varela. 1. Sinus tachycardia. This is most likely secondary to hypovolemia most likely due to sepsis. It appears that the patient's symptoms are compatible with urine drug infection given the UA picture. of therapy. 2. Abnormal electrocardiogram with ST segment changes in the inferior wall is now significant in the absence of chest pain. First troponin is negative. The patient's symptoms are mainly abdominal pain, nausea and vomiting, which is being worked up at this point. No cardiac intervention is required at this time. We will obtain 2D echocardiography for left ventricular systolic function, left ventricular ejection fraction and evaluation of hemodynamics. I would like to thank, Dr. Varela and Dr. Odell, for allowing me to participate in the care of this most pleasant patient. Gil Corcoran M.D. DR: JHONNY JOB#: [id number] CC:
[2016-12-21 07:18] LABS: BASOPHILS % (AUTO) 0.6 % (0.0-2.0); EOSINOPHILS % (AUTO) 0.5 % (0.0-3.0); LYMPHOCYTES % (AUTO) 17.5 % (20.0-45.0); MEAN CORPUSCULAR HEMOGLOBIN 30.1 PG (27.0-31.0); MEAN CORPUSCULAR HGB CONC 33.9 G/DL (32.0-36.0); MEAN CORPUSCULAR VOLUME 89 FL (80-99); MEAN PLATELET VOLUME 6.3 FL (6.5-10.1); MONOCYTES % (AUTO) 9.1 % (1.0-10.0); NEUTROPHILS % (AUTO) 72.3 % (45.0-75.0); PLATELET COUNT 220 K/UL (150-450); RED BLOOD COUNT 4.37 M/UL (4.20-5.40); RED CELL DISTRIBUTION WIDTH 11.9 % (11.6-14.8); WHITE BLOOD COUNT 14.7 K/UL (4.8-10.8)
[2016-12-21 07:43] LABS: ALANINE AMINOTRANSFERASE 9 U/L (3-33); ALBUMIN/GLOBULIN RATIO 0.9 (1.0-2.7); AMYLASE 216 U/L (10-110); ANION GAP 15 (5-15); ASPARTATE AMINO TRANSFERASE 28 U/L (5-40); CALCIUM 8.5 mg/dL (8.6-10.2); CARBON DIOXIDE 25 mEQ/L (20-30); CHLORIDE 102 mEQ/L (98-107); CREATININE 1.6 mg/dL (0.5-0.9); HEMOLYSIS 1; LIPASE 31 U/L (< 60); MAGNESIUM 1.9 mg/dL (1.7-2.5); PHOSPHORUS 1.9 mg/dL (2.5-4.8); POTASSIUM 3.3 mEQ/L (3.4-4.9); SODIUM 142 mEQ/L (135-145); TOTAL PROTEIN 6.2 g/dL (6.6-8.7)
[2016-12-21] MEDS: HydrALAZINE 50mg tab ORAL SCH ×3 (08:52→17:10)
[2016-12-21] MEDS: Heparin 5000 units/ml inj SUBQ SCH ×2 (08:53→21:58)
[2016-12-21] MEDS: Pantoprazole Inj IV SCH ×2 (08:53→17:10)
[2016-12-21] MEDS ORDERED: Aspirin Baby 81mg ORAL SCH (09:00)
[2016-12-21] MEDS ORDERED: Pantoprazole Inj IV SCH (09:00)
[2016-12-21] MEDS ORDERED: D5 1/2NS 1000ml IV ONE ×2 (14:15→16:29)
[2016-12-21] MEDS ORDERED: Tubing IV Secondary IV ONE (14:15)
[2016-12-21] MEDS: D5 1/2NS 1,000 ML IV SCH (17:41)
--- NOTE | 2016-12-21 17:59 | Internal Med Progress Note ---
Subjective Date of Service: December 21, 2016 Physician Name Emigdio Odell Attending Physician Rad Odell MD Current Medications Medications (Trade) Dose Ordered Sig/Shivani Route PRN Reason Start Time Stop Time Status Last Admin Dose Admin Acetaminophen (Tylenol) 650 mg Q4H PRN ORAL T>100.5 12/20/16 15:00 01/19/17 14:59 Al Hydroxide/Mg Hydroxide (Mylanta II) 30 ml Q6H PRN ORAL dyspepsia 12/20/16 15:00 01/19/17 14:59 Atorvastatin Calcium (Lipitor) 10 mg BEDTIME ORAL 12/20/16 21:00 01/19/17 20:59 12/20/16 21:29 Ceftriaxone Sodium/Dextrose (Rocephin/D5W) 55 ml @ 110 mls/hr Q24H IVPB 12/21/16 02:00 12/28/16 01:59 12/21/16 02:07 Clonidine HCl (Catapres) 0.1 mg Q4H PRN ORAL sbp more then 160 12/20/16 15:00 01/19/17 14:59 12/20/16 18:23 Dextrose (Dextrose 50%) STAT PRN IV Hypoglycemia 12/20/16 15:00 01/19/17 14:59 Dextrose/Sodium Chloride (D5 0.45% NS) 1,000 ml @ 75 mls/hr [id number] IV 12/20/16 15:00 01/19/17 14:59 12/21/16 17:41 Diphenhydramine HCl (Benadryl) 25 mg Q6H PRN ORAL Itching/Pruritis 12/20/16 15:00 01/19/17 14:59 Heparin Sodium (Porcine) (Heparin 5000 units/ml) 5,000 units EVERY 12 HOURS SUBQ 12/20/16 21:00 01/19/17 20:59 12/21/16 08:53 Hydralazine HCl (Apresoline) 50 mg TID ORAL 12/20/16 18:00 01/19/17 17:59 12/21/16 17:10 Lorazepam (Ativan 2mg/ml 1ml) 1 mg Q4H PRN IV agitation 12/20/16 15:00 12/27/16 14:59 Metoclopramide HCl (Reglan) 10 mg Q6H PRN IVP N/V IF ZOFRAN INEFFECTIVE 12/20/16 19:00 01/19/17 18:59 Metoprolol Succinate (Toprol XL) 25 mg Q12HR ORAL 12/20/16 21:00 01/19/17 20:59 12/21/16 08:52 Morphine Sulfate (Morphine Sulfate) 2 mg Q4H PRN IVP Severe Pain (Pain Scale 7-10) 12/20/16 15:00 12/27/16 14:59 Nitroglycerin (Ntg) 0.4 mg Q5M X 3 DOSES PRN SL Prn Chest Pain 12/20/16 15:00 01/19/17 14:59 Ondansetron HCl (Zofran) 4 mg Q6H PRN IVP Nausea & Vomiting 12/20/16 15:00 01/19/17 14:59 Pantoprazole (Protonix) 40 mg BID IV 12/20/16 18:00 01/19/17 17:59 12/21/16 17:10 Polyethylene Glycol (Miralax) 17 gm HSPRN PRN ORAL Constipation 12/20/16 21:00 01/19/17 20:59 Temazepam 15 mg 15 mg HSPRN PRN ORAL Insomnia 12/20/16 21:00 12/27/16 20:59 Allergies: Coded Allergies: NO KNOWN DRUG ALLERGIES (Unverified Allergy, Unknown, 07/14/14) ROS Limited/Unobtainable: No Constitutional: Reports: no symptoms HEENT: Reports: no symptoms Cardiovascular: Reports: no symptoms Gastrointestinal/Abdominal: Reports: abdominal pain Genitourinary: Reports: no symptoms Neurologic/Psychiatric: Reports: no symptoms Subjective 86 YO F admitted with abdominal pain. S/P endoscopy on 12/20/16. Cover for Int Bert-Dr Odell Objective Last Vital Signs Date Time Temp Pulse Resp B/P Pulse Ox O2 Delivery O2 Flow Rate FiO2 12/21/16 17:10 145/77 12/21/16 16:34 98.1 93 19 96 Room Air 12/21/16 04:00 3.0 Laboratory Tests Test 12/21/16 06:05 White Blood Count 14.7 K/UL (4.8-10.8) H Red Blood Count 4.37 M/UL (4.20-5.40) Hemoglobin 13.2 G/DL (12.0-16.0) Hematocrit 38.8 % (37.0-47.0) Mean Corpuscular Volume 89 FL (80-99) Mean Corpuscular Hemoglobin 30.1 PG (27.0-31.0) Mean Corpuscular Hemoglobin Concent 33.9 G/DL (32.0-36.0) Red Cell Distribution Width 11.9 % (11.6-14.8) Platelet Count 220 K/UL (150-450) Mean Platelet Volume 6.3 FL (6.5-10.1) L Neutrophils (%) (Auto) 72.3 % (45.0-75.0) Lymphocytes (%) (Auto) 17.5 % (20.0-45.0) L Monocytes (%) (Auto) 9.1 % (1.0-10.0) Eosinophils (%) (Auto) 0.5 % (0.0-3.0) Basophils (%) (Auto) 0.6 % (0.0-2.0) Activated Partial Thromboplast Time 34 SEC (23-33) H Sodium Level 142 mEQ/L (135-145) Potassium Level 3.3 mEQ/L (3.4-4.9) L Chloride Level 102 mEQ/L (98-107) Carbon Dioxide Level 25 mEQ/L (20-30) Anion Gap 15 (5-15) Blood Urea Nitrogen 13 mg/dL (7-23) Creatinine 1.6 mg/dL (0.5-0.9) H Estimat Glomerular Filtration Rate mL/min (>60) Glucose Level 106 mg/dL (74-106) # Calcium Level 8.5 mg/dL (8.6-10.2) L Phosphorus Level 1.9 mg/dL (2.5-4.8) L Magnesium Level 1.9 mg/dL (1.7-2.5) Total Bilirubin 0.4 mg/dL (0.0-1.2) Aspartate Amino Transf (AST/SGOT) 28 U/L (5-40) Alanine Aminotransferase (ALT/SGPT) 9 U/L (3-33) Alkaline Phosphatase 94 U/L (35-104) Total Protein 6.2 g/dL (6.6-8.7) L Albumin 3.0 g/dL (3.5-5.2) L Globulin 3.2 g/dL Albumin/Globulin Ratio 0.9 (1.0-2.7) L Amylase Level 216 U/L (10-110) H Lipase 31 U/L (< 60) Intake and Output 12/20/16 12/21/16 19:00 07:00 Intake Total 1505 ml 1075 ml Balance 1505 ml 1075 ml Intake Oral 480 ml 120 ml IV Total 1025 ml 955 ml # Voids 2 3 Objective General: alert, cooperative, no distress, appears stated age Head: normocephalic, without obvious abnormality, atraumatic Eyes: conjunctivae/corneas clear. PERRL, EOM's intact Throat: lips, mucosa, and tongue normal. MMM Neck: supple, symmetrical, trachea midline, and no JVD Lungs: clear to auscultation bilaterally Heart: regular rate and rhythm, S1, S2 normal, no murmur, click, rub or gallop Abdomen: soft, tender to palpation epigastric, non-distended, bowel sounds normal; no masses or organomegaly Extremities: extremities normal, atraumatic, no cyanosis or edema Pulses: 2+ and symmetric Skin: skin color, texture, turgor normal; no rashes or lesions Neurologic: grossly normal, no focal deficits Assessment/Plan Problem List: (1) Cerebral vascular disease (2) Ulcer, gastric, acute Assessment & Plan: S/P endoscopy on 12/20/16. See GI note. Cont protonix (3) Gastritis and duodenitis (4) Abdominal pain (5) Nausea & vomiting (6) HTN (hypertension) Assessment & Plan: Cont toprolol and hydralazine (7) Renal failure Status: progressing EMIGDIO ODELL December 21, 2016 17:59
--- NOTE | 2016-12-21 18:50 | Cardiology Progress Note ---
Assessment/Plan Assessment/Plan 1. Sinus tachycardia likely due to infection, i.e. UTI, possible hypovolemia, for ST will treat underlying disorder, continue metoprolol. 2. Mild mitral and aortic regurgitation with normal LVEF. 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 4. Hx of HTN, continue metoprolol, hydralazine and lisinopril Subjective Subjective Transferred to the med-surg unit. Objective Last 24 Hour Vital Signs Date Time Temp Pulse Resp B/P Pulse Ox O2 Delivery O2 Flow Rate FiO2 12/21/16 17:10 145/77 12/21/16 16:34 98.1 93 19 145/77 96 Room Air 12/21/16 12:56 161/94 12/21/16 12:13 99.3 98 18 161/94 99 Room Air 12/21/16 10:34 86 156/86 12/21/16 08:52 172/96 12/21/16 08:52 78 172/96 12/21/16 08:20 98.2 78 20 172/96 98 Room Air 12/21/16 04:00 98.2 73 18 154/87 100 Room Air 3.0 12/21/16 00:00 98.2 76 18 113/67 99 Room Air 3.0 12/20/16 21:51 81 128/67 12/20/16 20:00 98.2 85 18 113/59 99 Room Air 3.0 Intake and Output 12/20/16 12/21/16 19:00 07:00 Intake Total 1505 ml 1075 ml Balance 1505 ml 1075 ml Intake Oral 480 ml 120 ml IV Total 1025 ml 955 ml # Voids 2 3 2D Echo: LVEF 60%, Mild MR, Mild AR, Borderline LVH, RVSP 30 mmHg Laboratory Tests Test 12/21/16 06:05 White Blood Count 14.7 K/UL (4.8-10.8) H Red Blood Count 4.37 M/UL (4.20-5.40) Hemoglobin 13.2 G/DL (12.0-16.0) Hematocrit 38.8 % (37.0-47.0) Mean Corpuscular Volume 89 FL (80-99) Mean Corpuscular Hemoglobin 30.1 PG (27.0-31.0) Mean Corpuscular Hemoglobin Concent 33.9 G/DL (32.0-36.0) Red Cell Distribution Width 11.9 % (11.6-14.8) Platelet Count 220 K/UL (150-450) Mean Platelet Volume 6.3 FL (6.5-10.1) L Neutrophils (%) (Auto) 72.3 % (45.0-75.0) Lymphocytes (%) (Auto) 17.5 % (20.0-45.0) L Monocytes (%) (Auto) 9.1 % (1.0-10.0) Eosinophils (%) (Auto) 0.5 % (0.0-3.0) Basophils (%) (Auto) 0.6 % (0.0-2.0) Activated Partial Thromboplast Time 34 SEC (23-33) H Sodium Level 142 mEQ/L (135-145) Potassium Level 3.3 mEQ/L (3.4-4.9) L Chloride Level 102 mEQ/L (98-107) Carbon Dioxide Level 25 mEQ/L (20-30) Anion Gap 15 (5-15) Blood Urea Nitrogen 13 mg/dL (7-23) Creatinine 1.6 mg/dL (0.5-0.9) H Estimat Glomerular Filtration Rate mL/min (>60) Glucose Level 106 mg/dL (74-106) # Calcium Level 8.5 mg/dL (8.6-10.2) L Phosphorus Level 1.9 mg/dL (2.5-4.8) L Magnesium Level 1.9 mg/dL (1.7-2.5) Total Bilirubin 0.4 mg/dL (0.0-1.2) Aspartate Amino Transf (AST/SGOT) 28 U/L (5-40) Alanine Aminotransferase (ALT/SGPT) 9 U/L (3-33) Alkaline Phosphatase 94 U/L (35-104) Total Protein 6.2 g/dL (6.6-8.7) L Albumin 3.0 g/dL (3.5-5.2) L Globulin 3.2 g/dL Albumin/Globulin Ratio 0.9 (1.0-2.7) L Amylase Level 216 U/L (10-110) H Lipase 31 U/L (< 60) Objective HEENT: Atraumatic and normocephalic. Pupils are equal, round, and reactive to light and accommodation. Extraocular muscles intact. The patient had left facial droop. NECK: JVP is less than 5 cm. No carotid bruits. Carotid upstrokes 2+ bilaterally. CARDIOVASCULAR: Normal S1 and S2. Regular rate and rhythm. Tachycardiac. A 2/6 mid systolic murmur at left sternal border. PMI is at fourth intercoastal space at midclavicular line. LUNGS: Clear to auscultation bilaterally. ABDOMEN: Soft, nontender and nondistended. No hepatosplenomegaly. Positive bowel sounds. EXTREMITIES: No evidence of edema, clubbing, or cyanosis. SHAYY SALAS December 21, 2016 18:49
--- NOTE | 2016-12-21 21:46 | Pulmonology Progress Note ---
Assessment/Plan Problems: (1) Accelerated hypertension (2) Intractable nausea and vomiting (3) Intractable abdominal pain (4) Leukocytosis Assessment/Plan advance diet f/u wbc, no sign of infection Occult blood positive PPI f/u GI recommendation renal w/u echo results noted Subjective ROS Limited/Unobtainable: No Interval Events: EGD done showing gastritis Allergies: Coded Allergies: NO KNOWN DRUG ALLERGIES (Unverified Allergy, Unknown, 07/14/14) Objective Last 24 Hour Vital Signs Date Time Temp Pulse Resp B/P Pulse Ox O2 Delivery O2 Flow Rate FiO2 12/21/16 20:00 99.0 100 20 139/82 96 Room Air 12/21/16 17:10 145/77 12/21/16 16:34 98.1 93 19 145/77 96 Room Air 12/21/16 12:56 161/94 12/21/16 12:13 99.3 98 18 161/94 99 Room Air 12/21/16 10:34 86 156/86 12/21/16 08:52 172/96 12/21/16 08:52 78 172/96 12/21/16 08:20 98.2 78 20 172/96 98 Room Air 12/21/16 04:00 98.2 73 18 154/87 100 Room Air 3.0 12/21/16 00:00 98.2 76 18 113/67 99 Room Air 3.0 12/20/16 21:51 81 128/67 Intake and Output 12/20/16 12/21/16 19:00 07:00 Intake Total 1505 ml 1075 ml Balance 1505 ml 1075 ml Intake Oral 480 ml 120 ml IV Total 1025 ml 955 ml # Voids 2 3 General Appearance: WD/WN HEENT: normocephalic Respiratory/Chest: chest wall non-tender, lungs clear Breasts: no masses Cardiovascular: normal peripheral pulses Abdomen: normal bowel sounds, soft, non tender Genitourinary: normal external genitalia Skin: no rash Neurologic/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: 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 Lymphatic: no neck adenopathy Laboratory Tests 12/21/16 06:05: White Blood Count 14.7H, Red Blood Count 4.37, Hemoglobin 13.2, Hematocrit 38.8 , Mean Corpuscular Volume 89, Mean Corpuscular Hemoglobin 30.1, Mean Corpuscular Hemoglobin Concent 33.9, Red Cell Distribution Width 11.9, Platelet Count 220, Mean Platelet Volume 6.3L, Neutrophils (%) (Auto) 72.3, Lymphocytes ( %) (Auto) 17.5L, Monocytes (%) (Auto) 9.1, Eosinophils (%) (Auto) 0.5, Basophils (%) (Auto) 0.6, Activated Partial Thromboplast Time 34H, Sodium Level 142, Potassium Level 3.3L, Chloride Level 102, Carbon Dioxide Level 25, Anion Gap 15, Blood Urea Nitrogen 13, Creatinine 1.6H, Estimat Glomerular Filtration Rate , Glucose Level 106#, Calcium Level 8.5L, Phosphorus Level 1.9L, Magnesium Level 1.9, Total Bilirubin 0.4, Aspartate Amino Transf (AST/SGOT) 28, Alanine Aminotransferase (ALT/SGPT) 9, Alkaline Phosphatase 94, Total Protein 6.2L, Albumin 3.0L, Globulin 3.2, Albumin/Globulin Ratio 0.9L, Amylase Level 216H, Lipase 31 Current Medications Medications (Trade) Dose Ordered Sig/Shivani Route PRN Reason Start Time Stop Time Status Last Admin Dose Admin Acetaminophen (Tylenol) 650 mg Q4H PRN ORAL T>100.5 12/20/16 15:00 01/19/17 14:59 Al Hydroxide/Mg Hydroxide (Mylanta II) 30 ml Q6H PRN ORAL dyspepsia 12/20/16 15:00 01/19/17 14:59 Atorvastatin Calcium (Lipitor) 10 mg BEDTIME ORAL 12/20/16 21:00 01/19/17 20:59 12/20/16 21:29 Ceftriaxone Sodium/Dextrose (Rocephin/D5W) 55 ml @ 110 mls/hr Q24H IVPB 12/21/16 02:00 12/28/16 01:59 12/21/16 02:07 Clonidine HCl (Catapres) 0.1 mg Q4H PRN ORAL sbp more then 160 12/20/16 15:00 01/19/17 14:59 12/20/16 18:23 Dextrose (Dextrose 50%) STAT PRN IV Hypoglycemia 12/20/16 15:00 01/19/17 14:59 Dextrose/Sodium Chloride (D5 0.45% NS) 1,000 ml @ 75 mls/hr [id number] IV 12/20/16 15:00 01/19/17 14:59 12/21/16 17:41 Diphenhydramine HCl (Benadryl) 25 mg Q6H PRN ORAL Itching/Pruritis 12/20/16 15:00 01/19/17 14:59 Heparin Sodium (Porcine) (Heparin 5000 units/ml) 5,000 units EVERY 12 HOURS SUBQ 12/20/16 21:00 01/19/17 20:59 12/21/16 08:53 Hydralazine HCl (Apresoline) 50 mg TID ORAL 12/20/16 18:00 01/19/17 17:59 12/21/16 17:10 Lorazepam (Ativan 2mg/ml 1ml) 1 mg Q4H PRN IV agitation 12/20/16 15:00 12/27/16 14:59 Metoclopramide HCl (Reglan) 10 mg Q6H PRN IVP N/V IF ZOFRAN INEFFECTIVE 12/20/16 19:00 01/19/17 18:59 Metoprolol Succinate (Toprol XL) 25 mg Q12HR ORAL 12/20/16 21:00 01/19/17 20:59 12/21/16 08:52 Morphine Sulfate (Morphine Sulfate) 2 mg Q4H PRN IVP Severe Pain (Pain Scale 7-10) 12/20/16 15:00 12/27/16 14:59 Nitroglycerin (Ntg) 0.4 mg Q5M X 3 DOSES PRN SL Prn Chest Pain 12/20/16 15:00 01/19/17 14:59 Ondansetron HCl (Zofran) 4 mg Q6H PRN IVP Nausea & Vomiting 12/20/16 15:00 01/19/17 14:59 Pantoprazole (Protonix) 40 mg BID IV 12/20/16 18:00 01/19/17 17:59 12/21/16 17:10 Polyethylene Glycol (Miralax) 17 gm HSPRN PRN ORAL Constipation 12/20/16 21:00 01/19/17 20:59 Temazepam 15 mg 15 mg HSPRN PRN ORAL Insomnia 12/20/16 21:00 12/27/16 20:59 MILAGROS URIARTE December 21, 2016 21:46
--- NOTE | 2016-12-21 22:26 | General Progress Note ---
Assessment/Plan Assessment/Plan Assessment - N/V - PUD - HTN - CKD - dyslipidemia - CVA - LOPEZ Recommendations - continue current Rx - push po - PPI - elevate HOB Subjective Allergies: Coded Allergies: NO KNOWN DRUG ALLERGIES (Unverified Allergy, Unknown, 07/14/14) Subjective Calm NAD no complaints Objective Last 24 Hour Vital Signs Date Time Temp Pulse Resp B/P Pulse Ox O2 Delivery O2 Flow Rate FiO2 12/21/16 21:54 100 139/82 12/21/16 20:00 99.0 100 20 139/82 96 Room Air 12/21/16 17:10 145/77 12/21/16 16:34 98.1 93 19 145/77 96 Room Air 12/21/16 12:56 161/94 12/21/16 12:13 99.3 98 18 161/94 99 Room Air 12/21/16 10:34 86 156/86 12/21/16 08:52 172/96 12/21/16 08:52 78 172/96 12/21/16 08:20 98.2 78 20 172/96 98 Room Air 12/21/16 04:00 98.2 73 18 154/87 100 Room Air 3.0 12/21/16 00:00 98.2 76 18 113/67 99 Room Air 3.0 Intake and Output 12/20/16 12/21/16 19:00 07:00 Intake Total 1505 ml 1075 ml Balance 1505 ml 1075 ml Intake Oral 480 ml 120 ml IV Total 1025 ml 955 ml # Voids 2 3 Laboratory Tests 12/21/16 06:05: White Blood Count 14.7H, Red Blood Count 4.37, Hemoglobin 13.2, Hematocrit 38.8 , Mean Corpuscular Volume 89, Mean Corpuscular Hemoglobin 30.1, Mean Corpuscular Hemoglobin Concent 33.9, Red Cell Distribution Width 11.9, Platelet Count 220, Mean Platelet Volume 6.3L, Neutrophils (%) (Auto) 72.3, Lymphocytes ( %) (Auto) 17.5L, Monocytes (%) (Auto) 9.1, Eosinophils (%) (Auto) 0.5, Basophils (%) (Auto) 0.6, Activated Partial Thromboplast Time 34H, Sodium Level 142, Potassium Level 3.3L, Chloride Level 102, Carbon Dioxide Level 25, Anion Gap 15, Blood Urea Nitrogen 13, Creatinine 1.6H, Estimat Glomerular Filtration Rate , Glucose Level 106#, Calcium Level 8.5L, Phosphorus Level 1.9L, Magnesium Level 1.9, Total Bilirubin 0.4, Aspartate Amino Transf (AST/SGOT) 28, Alanine Aminotransferase (ALT/SGPT) 9, Alkaline Phosphatase 94, Total Protein 6.2L, Albumin 3.0L, Globulin 3.2, Albumin/Globulin Ratio 0.9L, Amylase Level 216H, Lipase 31 Height (Feet): 5 Height (Inches): 3.00 Weight (Pounds): 88 Objective WDWN NCAT supple CTA RRR sofr ND NT no edema JUAN MIGUEL WELCH December 21, 2016 22:26
[2016-12-22] VITALS (8 sets, daily range): BP systolic 117–173; BP diastolic 56–92
[2016-12-22] MEDS: cefTRIAXone 1 GM in D5W 55 ML IVPB SCH (02:06)
[2016-12-22] MEDS: D5 1/2NS 1,000 ML IV SCH ×2 (02:06→20:54)
[2016-12-22 07:39] LABS: BASOPHILS % (AUTO) 0.8 % (0.0-2.0); EOSINOPHILS % (AUTO) 2.1 % (0.0-3.0); LYMPHOCYTES % (AUTO) 22.1 % (20.0-45.0); MEAN CORPUSCULAR HEMOGLOBIN 31.1 PG (27.0-31.0); MEAN CORPUSCULAR HGB CONC 34.7 G/DL (32.0-36.0); MEAN CORPUSCULAR VOLUME 90 FL (80-99); MEAN PLATELET VOLUME 6.3 FL (6.5-10.1); MONOCYTES % (AUTO) 10.4 % (1.0-10.0); NEUTROPHILS % (AUTO) 64.7 % (45.0-75.0); PLATELET COUNT 207 K/UL (150-450); RED BLOOD COUNT 4.16 M/UL (4.20-5.40); RED CELL DISTRIBUTION WIDTH 12.3 % (11.6-14.8)
[2016-12-22 07:48] LABS: ANION GAP 13 (5-15); CALCIUM 8.4 mg/dL (8.6-10.2); CARBON DIOXIDE 23 mEQ/L (20-30); CHLORIDE 106 mEQ/L (98-107); CREATININE 1.4 mg/dL (0.5-0.9); HEMOLYSIS 4; POTASSIUM 3.8 mEQ/L (3.4-4.9); SODIUM 142 mEQ/L (135-145)
[2016-12-22] MEDS: HydrALAZINE 50mg tab ORAL SCH ×3 (08:19→16:59)
[2016-12-22] MEDS: Pantoprazole Inj IV SCH ×2 (08:19→16:59)
[2016-12-22] MEDS: Heparin 5000 units/ml inj SUBQ SCH ×2 (08:20→21:02)
[2016-12-22] MEDS ORDERED: D5 1/2NS 1000ml IV ONE (09:01)
[2016-12-22] MEDS ORDERED: Promethazine/Codeine 5ml UD ORAL PRN (13:00)
--- NOTE | 2016-12-22 14:50 | General Progress Note ---
Assessment/Plan Assessment/Plan Assessment - N/V - PUD - HTN - CKD - dyslipidemia - CVA - LOPEZ Recommendations - continue current Rx - push po - PPI - elevate HOB Subjective Allergies: Coded Allergies: NO KNOWN DRUG ALLERGIES (Unverified Allergy, Unknown, 07/14/14) Subjective Calm NAD no complaints Objective Last 24 Hour Vital Signs Date Time Temp Pulse Resp B/P Pulse Ox O2 Delivery O2 Flow Rate FiO2 12/22/16 13:02 117/64 12/22/16 13:02 70 117/64 12/22/16 12:12 163/78 12/22/16 12:00 98.2 73 18 163/78 96 Room Air 12/22/16 08:19 160/92 12/22/16 08:19 72 160/92 12/22/16 07:46 98.0 72 18 160/92 96 Room Air 12/22/16 05:43 71 160/88 12/22/16 04:17 173/79 12/22/16 04:00 98.0 79 18 173/79 94 Room Air 12/22/16 00:00 98.3 91 20 135/80 99 Room Air 12/21/16 21:54 100 139/82 12/21/16 20:00 99.0 100 20 139/82 96 Room Air 12/21/16 17:10 145/77 12/21/16 16:34 98.1 93 19 145/77 96 Room Air Intake and Output 12/21/16 12/22/16 19:00 07:00 Intake Total 855 ml 880 ml Balance 855 ml 880 ml Intake Oral 480 ml IV Total 375 ml 880 ml # Voids 4 1 Laboratory Tests 12/22/16 06:25: White Blood Count 9.0, Red Blood Count 4.16L, Hemoglobin 12.9, Hematocrit 37.3, Mean Corpuscular Volume 90, Mean Corpuscular Hemoglobin 31.1H, Mean Corpuscular Hemoglobin Concent 34.7, Red Cell Distribution Width 12.3, Platelet Count 207, Mean Platelet Volume 6.3L, Neutrophils (%) (Auto) 64.7, Lymphocytes (%) (Auto) 22.1, Monocytes (%) (Auto) 10.4H, Eosinophils (%) (Auto) 2.1, Basophils (%) ( Auto) 0.8, Sodium Level 142, Potassium Level 3.8, Chloride Level 106, Carbon Dioxide Level 23, Anion Gap 13, Blood Urea Nitrogen 9, Creatinine 1.4H, Estimat Glomerular Filtration Rate , Glucose Level 116H, Calcium Level 8.4L, Magnesium Level 2.0 Height (Feet): 5 Height (Inches): 3.00 Weight (Pounds): 88 Objective WDWN NCAT supple CTA RRR sofr ND NT no edema JUAN MIGUEL WELCH December 22, 2016 14:50
--- NOTE | 2016-12-22 17:18 | Internal Med Progress Note ---
Subjective Date of Service: December 22, 2016 Physician Name Emigdio Odell Attending Physician Rad Odell MD Current Medications Medications (Trade) Dose Ordered Sig/Shivani Route PRN Reason Start Time Stop Time Status Last Admin Dose Admin Acetaminophen (Tylenol) 650 mg Q4H PRN ORAL T>100.5 12/20/16 15:00 01/19/17 14:59 Al Hydroxide/Mg Hydroxide (Mylanta II) 30 ml Q6H PRN ORAL dyspepsia 12/20/16 15:00 01/19/17 14:59 Atorvastatin Calcium (Lipitor) 10 mg BEDTIME ORAL 12/20/16 21:00 01/19/17 20:59 12/21/16 21:54 Ceftriaxone Sodium/Dextrose (Rocephin/D5W) 55 ml @ 110 mls/hr Q24H IVPB 12/21/16 02:00 12/28/16 01:59 12/22/16 02:06 Clonidine HCl (Catapres) 0.1 mg Q4H PRN ORAL sbp more then 160 12/20/16 15:00 01/19/17 14:59 12/22/16 12:12 Dextrose (Dextrose 50%) STAT PRN IV Hypoglycemia 12/20/16 15:00 01/19/17 14:59 Dextrose/Sodium Chloride (D5 0.45% NS) 1,000 ml @ 75 mls/hr [id number] IV 12/20/16 15:00 01/19/17 14:59 12/22/16 02:06 Diphenhydramine HCl (Benadryl) 25 mg Q6H PRN ORAL Itching/Pruritis 12/20/16 15:00 01/19/17 14:59 Heparin Sodium (Porcine) (Heparin 5000 units/ml) 5,000 units EVERY 12 HOURS SUBQ 12/20/16 21:00 01/19/17 20:59 12/22/16 08:20 Hydralazine HCl (Apresoline) 50 mg TID ORAL 12/20/16 18:00 01/19/17 17:59 12/22/16 16:59 Lorazepam (Ativan 2mg/ml 1ml) 1 mg Q4H PRN IV agitation 12/20/16 15:00 12/27/16 14:59 Metoclopramide HCl (Reglan) 10 mg Q6H PRN IVP N/V IF ZOFRAN INEFFECTIVE 12/20/16 19:00 01/19/17 18:59 Metoprolol Succinate (Toprol XL) 25 mg Q12HR ORAL 12/20/16 21:00 01/19/17 20:59 12/22/16 08:19 Morphine Sulfate (Morphine Sulfate) 2 mg Q4H PRN IVP Severe Pain (Pain Scale 7-10) 12/20/16 15:00 12/27/16 14:59 Nitroglycerin (Ntg) 0.4 mg Q5M X 3 DOSES PRN SL Prn Chest Pain 12/20/16 15:00 01/19/17 14:59 Ondansetron HCl (Zofran) 4 mg Q6H PRN IVP Nausea & Vomiting 12/20/16 15:00 01/19/17 14:59 Pantoprazole (Protonix) 40 mg BID IV 12/20/16 18:00 01/19/17 17:59 12/22/16 16:59 Polyethylene Glycol (Miralax) 17 gm HSPRN PRN ORAL Constipation 12/20/16 21:00 01/19/17 20:59 Promethazine HCl/ Codeine (Phenergan with Codeine) 5 ml Q6HR PRN ORAL For Cough 12/22/16 13:00 01/21/17 12:59 Temazepam 15 mg 15 mg HSPRN PRN ORAL Insomnia 12/20/16 21:00 12/27/16 20:59 Allergies: Coded Allergies: NO KNOWN DRUG ALLERGIES (Unverified Allergy, Unknown, 07/14/14) ROS Limited/Unobtainable: No Constitutional: Reports: no symptoms HEENT: Reports: no symptoms Cardiovascular: Reports: no symptoms Respiratory: Reports: no symptoms Gastrointestinal/Abdominal: Reports: no symptoms Genitourinary: Reports: no symptoms Neurologic/Psychiatric: Reports: no symptoms Subjective 86 YO F admitted with abdominal pain. S/P endoscopy on 12/20/16. Cover for Miya Odell Objective Last Vital Signs Date Time Temp Pulse Resp B/P Pulse Ox O2 Delivery O2 Flow Rate FiO2 12/22/16 16:59 124/66 12/22/16 15:41 98.4 65 20 97 Room Air 12/21/16 04:00 3.0 Laboratory Tests Test 12/22/16 06:25 White Blood Count 9.0 K/UL (4.8-10.8) Red Blood Count 4.16 M/UL (4.20-5.40) L Hemoglobin 12.9 G/DL (12.0-16.0) Hematocrit 37.3 % (37.0-47.0) Mean Corpuscular Volume 90 FL (80-99) Mean Corpuscular Hemoglobin 31.1 PG (27.0-31.0) H Mean Corpuscular Hemoglobin Concent 34.7 G/DL (32.0-36.0) Red Cell Distribution Width 12.3 % (11.6-14.8) Platelet Count 207 K/UL (150-450) Mean Platelet Volume 6.3 FL (6.5-10.1) L Neutrophils (%) (Auto) 64.7 % (45.0-75.0) Lymphocytes (%) (Auto) 22.1 % (20.0-45.0) Monocytes (%) (Auto) 10.4 % (1.0-10.0) H Eosinophils (%) (Auto) 2.1 % (0.0-3.0) Basophils (%) (Auto) 0.8 % (0.0-2.0) Sodium Level 142 mEQ/L (135-145) Potassium Level 3.8 mEQ/L (3.4-4.9) Chloride Level 106 mEQ/L (98-107) Carbon Dioxide Level 23 mEQ/L (20-30) Anion Gap 13 (5-15) Blood Urea Nitrogen 9 mg/dL (7-23) Creatinine 1.4 mg/dL (0.5-0.9) H Estimat Glomerular Filtration Rate mL/min (>60) Glucose Level 116 mg/dL (74-106) H Calcium Level 8.4 mg/dL (8.6-10.2) L Magnesium Level 2.0 mg/dL (1.7-2.5) Intake and Output 12/21/16 12/22/16 19:00 07:00 Intake Total 855 ml 880 ml Balance 855 ml 880 ml Intake Oral 480 ml IV Total 375 ml 880 ml # Voids 4 1 Objective General: alert, cooperative, no distress, appears stated age Head: normocephalic, without obvious abnormality, atraumatic Eyes: conjunctivae/corneas clear. PERRL, EOM's intact Throat: lips, mucosa, and tongue normal. MMM Neck: supple, symmetrical, trachea midline, and no JVD Lungs: clear to auscultation bilaterally Heart: regular rate and rhythm, S1, S2 normal, no murmur, click, rub or gallop Abdomen: soft, tender to palpation epigastric, non-distended, bowel sounds normal; no masses or organomegaly Extremities: extremities normal, atraumatic, no cyanosis or edema Pulses: 2+ and symmetric Skin: skin color, texture, turgor normal; no rashes or lesions Neurologic: grossly normal, no focal deficits Assessment/Plan Problem List: (1) Cerebral vascular disease (2) Ulcer, gastric, acute Assessment & Plan: S/P endoscopy on 12/20/16. See GI note. Cont protonix (3) Gastritis and duodenitis (4) Abdominal pain (5) Nausea & vomiting (6) HTN (hypertension) Assessment & Plan: Cont toprolol and hydralazine (7) Renal failure Status: progressing EMIGDIO ODELL December 22, 2016 17:18
--- NOTE | 2016-12-22 18:54 | Pulmonology Progress Note ---
Assessment/Plan Problems: (1) Accelerated hypertension (2) Intractable nausea and vomiting (3) Intractable abdominal pain (4) Leukocytosis (5) OB + stool (6) Anemia Assessment/Plan advance diet f/u wbc, no sign of infection Occult blood positive PPI f/u GI recommendation needs endoscopy f/u H/H renal w/u echo results noted Subjective ROS Limited/Unobtainable: No Allergies: Coded Allergies: NO KNOWN DRUG ALLERGIES (Unverified Allergy, Unknown, 07/14/14) Objective Last 24 Hour Vital Signs Date Time Temp Pulse Resp B/P Pulse Ox O2 Delivery O2 Flow Rate FiO2 12/22/16 16:59 124/66 12/22/16 15:41 98.4 65 20 124/66 97 Room Air 12/22/16 13:02 117/64 12/22/16 13:02 70 117/64 12/22/16 12:12 163/78 12/22/16 12:00 98.2 73 18 163/78 96 Room Air 12/22/16 08:19 160/92 12/22/16 08:19 72 160/92 12/22/16 07:46 98.0 72 18 160/92 96 Room Air 12/22/16 05:43 71 160/88 12/22/16 04:17 173/79 12/22/16 04:00 98.0 79 18 173/79 94 Room Air 12/22/16 00:00 98.3 91 20 135/80 99 Room Air 12/21/16 21:54 100 139/82 12/21/16 20:00 99.0 100 20 139/82 96 Room Air Intake and Output 12/21/16 12/22/16 19:00 07:00 Intake Total 855 ml 880 ml Balance 855 ml 880 ml Intake Oral 480 ml IV Total 375 ml 880 ml # Voids 4 1 General Appearance: cachetic HEENT: normocephalic Respiratory/Chest: chest wall non-tender, lungs clear Breasts: no masses Cardiovascular: normal peripheral pulses Abdomen: normal bowel sounds, soft, non tender Genitourinary: normal external genitalia Skin: no rash Neurologic/Psychiatric: full fashioned garment knitter II-XII grossly normal Lymphatic: no neck adenopathy Laboratory Tests 12/22/16 06:25: White Blood Count 9.0, Red Blood Count 4.16L, Hemoglobin 12.9, Hematocrit 37.3, Mean Corpuscular Volume 90, Mean Corpuscular Hemoglobin 31.1H, Mean Corpuscular Hemoglobin Concent 34.7, Red Cell Distribution Width 12.3, Platelet Count 207, Mean Platelet Volume 6.3L, Neutrophils (%) (Auto) 64.7, Lymphocytes (%) (Auto) 22.1, Monocytes (%) (Auto) 10.4H, Eosinophils (%) (Auto) 2.1, Basophils (%) ( Auto) 0.8, Sodium Level 142, Potassium Level 3.8, Chloride Level 106, Carbon Dioxide Level 23, Anion Gap 13, Blood Urea Nitrogen 9, Creatinine 1.4H, Estimat Glomerular Filtration Rate , Glucose Level 116H, Calcium Level 8.4L, Magnesium Level 2.0 Current Medications Medications (Trade) Dose Ordered Sig/Shivani Route PRN Reason Start Time Stop Time Status Last Admin Dose Admin Acetaminophen (Tylenol) 650 mg Q4H PRN ORAL T>100.5 12/20/16 15:00 01/19/17 14:59 Al Hydroxide/Mg Hydroxide (Mylanta II) 30 ml Q6H PRN ORAL dyspepsia 12/20/16 15:00 01/19/17 14:59 Atorvastatin Calcium (Lipitor) 10 mg BEDTIME ORAL 12/20/16 21:00 01/19/17 20:59 12/21/16 21:54 Ceftriaxone Sodium/Dextrose (Rocephin/D5W) 55 ml @ 110 mls/hr Q24H IVPB 12/21/16 02:00 12/28/16 01:59 12/22/16 02:06 Clonidine HCl (Catapres) 0.1 mg Q4H PRN ORAL sbp more then 160 12/20/16 15:00 01/19/17 14:59 12/22/16 12:12 Dextrose (Dextrose 50%) STAT PRN IV Hypoglycemia 12/20/16 15:00 01/19/17 14:59 Dextrose/Sodium Chloride (D5 0.45% NS) 1,000 ml @ 75 mls/hr [id number] IV 12/20/16 15:00 01/19/17 14:59 12/22/16 02:06 Diphenhydramine HCl (Benadryl) 25 mg Q6H PRN ORAL Itching/Pruritis 12/20/16 15:00 01/19/17 14:59 Heparin Sodium (Porcine) (Heparin 5000 units/ml) 5,000 units EVERY 12 HOURS SUBQ 12/20/16 21:00 01/19/17 20:59 12/22/16 08:20 Hydralazine HCl (Apresoline) 50 mg TID ORAL 12/20/16 18:00 01/19/17 17:59 12/22/16 16:59 Lorazepam (Ativan 2mg/ml 1ml) 1 mg Q4H PRN IV agitation 12/20/16 15:00 12/27/16 14:59 Metoclopramide HCl (Reglan) 10 mg Q6H PRN IVP N/V IF ZOFRAN INEFFECTIVE 12/20/16 19:00 01/19/17 18:59 Metoprolol Succinate (Toprol XL) 25 mg Q12HR ORAL 12/20/16 21:00 01/19/17 20:59 12/22/16 08:19 Morphine Sulfate (Morphine Sulfate) 2 mg Q4H PRN IVP Severe Pain (Pain Scale 7-10) 12/20/16 15:00 12/27/16 14:59 Nitroglycerin (Ntg) 0.4 mg Q5M X 3 DOSES PRN SL Prn Chest Pain 12/20/16 15:00 01/19/17 14:59 Ondansetron HCl (Zofran) 4 mg Q6H PRN IVP Nausea & Vomiting 12/20/16 15:00 01/19/17 14:59 Pantoprazole (Protonix) 40 mg BID IV 12/20/16 18:00 01/19/17 17:59 12/22/16 16:59 Polyethylene Glycol (Miralax) 17 gm HSPRN PRN ORAL Constipation 12/20/16 21:00 01/19/17 20:59 Promethazine HCl/ Codeine (Phenergan with Codeine) 5 ml Q6HR PRN ORAL For Cough 12/22/16 13:00 01/21/17 12:59 Temazepam 15 mg 15 mg HSPRN PRN ORAL Insomnia 12/20/16 21:00 12/27/16 20:59 MILAGROS URIARTE December 22, 2016 18:54
--- NOTE | 2016-12-22 23:50 | Cardiology Progress Note ---
Assessment/Plan Assessment/Plan 1. Sinus tachycardia resolved, continue metoprolol. 2. Mild mitral and aortic regurgitation with normal LVEF. 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 4. Hx of HTN, continue metoprolol, hydralazine and lisinopril Subjective Subjective Denies chest pain or SOB. Objective Last 24 Hour Vital Signs Date Time Temp Pulse Resp B/P Pulse Ox O2 Delivery O2 Flow Rate FiO2 12/22/16 20:55 79 138/56 12/22/16 20:00 97.7 79 20 138/56 97 Room Air 12/22/16 16:59 124/66 12/22/16 15:41 98.4 65 20 124/66 97 Room Air 12/22/16 13:02 117/64 12/22/16 13:02 70 117/64 12/22/16 12:12 163/78 12/22/16 12:00 98.2 73 18 163/78 96 Room Air 12/22/16 08:19 160/92 12/22/16 08:19 72 160/92 12/22/16 07:46 98.0 72 18 160/92 96 Room Air 12/22/16 05:43 71 160/88 12/22/16 04:17 173/79 12/22/16 04:00 98.0 79 18 173/79 94 Room Air 12/22/16 00:00 98.3 91 20 135/80 99 Room Air Intake and Output 12/21/16 12/22/16 19:00 07:00 Intake Total 855 ml 880 ml Balance 855 ml 880 ml Intake Oral 480 ml IV Total 375 ml 880 ml # Voids 4 1 2D Echo: LVEF 60%, Mild MR, Mild AR, Borderline LVH, RVSP 30 mmHg Laboratory Tests Test 12/22/16 06:25 White Blood Count 9.0 K/UL (4.8-10.8) Red Blood Count 4.16 M/UL (4.20-5.40) L Hemoglobin 12.9 G/DL (12.0-16.0) Hematocrit 37.3 % (37.0-47.0) Mean Corpuscular Volume 90 FL (80-99) Mean Corpuscular Hemoglobin 31.1 PG (27.0-31.0) H Mean Corpuscular Hemoglobin Concent 34.7 G/DL (32.0-36.0) Red Cell Distribution Width 12.3 % (11.6-14.8) Platelet Count 207 K/UL (150-450) Mean Platelet Volume 6.3 FL (6.5-10.1) L Neutrophils (%) (Auto) 64.7 % (45.0-75.0) Lymphocytes (%) (Auto) 22.1 % (20.0-45.0) Monocytes (%) (Auto) 10.4 % (1.0-10.0) H Eosinophils (%) (Auto) 2.1 % (0.0-3.0) Basophils (%) (Auto) 0.8 % (0.0-2.0) Sodium Level 142 mEQ/L (135-145) Potassium Level 3.8 mEQ/L (3.4-4.9) Chloride Level 106 mEQ/L (98-107) Carbon Dioxide Level 23 mEQ/L (20-30) Anion Gap 13 (5-15) Blood Urea Nitrogen 9 mg/dL (7-23) Creatinine 1.4 mg/dL (0.5-0.9) H Estimat Glomerular Filtration Rate mL/min (>60) Glucose Level 116 mg/dL (74-106) H Calcium Level 8.4 mg/dL (8.6-10.2) L Magnesium Level 2.0 mg/dL (1.7-2.5) Objective HEENT: Atraumatic and normocephalic. Pupils are equal, round, and reactive to light and accommodation. Extraocular muscles intact. The patient had left facial droop. NECK: JVP is less than 5 cm. No carotid bruits. Carotid upstrokes 2+ bilaterally. CARDIOVASCULAR: Normal S1 and S2. Regular rate and rhythm. A 2/6 mid systolic murmur at left sternal border. PMI is at fourth intercoastal space at midclavicular line. LUNGS: Clear to auscultation bilaterally. ABDOMEN: Soft, nontender and nondistended. No hepatosplenomegaly. Positive bowel sounds. EXTREMITIES: No evidence of edema, clubbing, or cyanosis. SHAYY SALAS December 22, 2016 23:50
[2016-12-23] VITALS (7 sets, daily range): BP systolic 117–189; BP diastolic 76–96
[2016-12-23] MEDS: cefTRIAXone 1 GM in D5W 55 ML IVPB SCH (01:33)
[2016-12-23 06:33] LABS: BASOPHILS % (AUTO) 0.8 % (0.0-2.0); EOSINOPHILS % (AUTO) 4.1 % (0.0-3.0); LYMPHOCYTES % (AUTO) 26.7 % (20.0-45.0); MEAN CORPUSCULAR HEMOGLOBIN 30.1 PG (27.0-31.0); MEAN CORPUSCULAR HGB CONC 33.4 G/DL (32.0-36.0); MEAN CORPUSCULAR VOLUME 90 FL (80-99); MONOCYTES % (AUTO) 10.6 % (1.0-10.0); NEUTROPHILS % (AUTO) 57.9 % (45.0-75.0); PLATELET COUNT 227 K/UL (150-450); RED BLOOD COUNT 4.05 M/UL (4.20-5.40); RED CELL DISTRIBUTION WIDTH 12.4 % (11.6-14.8); WHITE BLOOD COUNT 8.2 K/UL (4.8-10.8)
[2016-12-23 07:04] LABS: ANION GAP 15 (5-15); CALCIUM 8.2 mg/dL (8.6-10.2); CARBON DIOXIDE 21 mEQ/L (20-30); CHLORIDE 102 mEQ/L (98-107); CREATININE 1.6 mg/dL (0.5-0.9); HEMOLYSIS 3; POTASSIUM 3.9 mEQ/L (3.4-4.9); SODIUM 138 mEQ/L (135-145)
--- NOTE | 2016-12-23 07:56 | General Progress Note ---
Assessment/Plan Problem List: (1) Anemia ICD Codes: D64.9 - Anemia, unspecified SNOMED: 439818164 (2) OB + stool ICD Codes: R19.5 - Other fecal abnormalities SNOMED: 05518423, 330196583 (3) Ulcer, gastric, acute ICD Codes: K25.3 - Acute gastric ulcer without hemorrhage or perforation SNOMED: 75342787 (4) Abdominal pain ICD Codes: R10.9 - Unspecified abdominal pain SNOMED: 23990231 (5) HTN (hypertension) ICD Codes: I10 - Essential (primary) hypertension SNOMED: 85249926 Assessment/Plan d/w her daughter plan colonoscopy tomorrow fu biopsy results ppi avoid NSAID Subjective ROS Limited/Unobtainable: Yes Allergies: Coded Allergies: NO KNOWN DRUG ALLERGIES (Unverified Allergy, Unknown, 07/14/14) Subjective no event Objective Last 24 Hour Vital Signs Date Time Temp Pulse Resp B/P Pulse Ox O2 Delivery O2 Flow Rate FiO2 12/23/16 04:00 98.1 71 20 146/81 97 Room Air 12/23/16 01:16 98 Room Air 12/23/16 00:00 98.1 74 20 117/76 Room Air 12/22/16 20:55 79 138/56 12/22/16 20:00 97.7 79 20 138/56 97 Room Air 12/22/16 16:59 124/66 12/22/16 15:41 98.4 65 20 124/66 97 Room Air 12/22/16 13:02 117/64 12/22/16 13:02 70 117/64 12/22/16 12:12 163/78 12/22/16 12:00 98.2 73 18 163/78 96 Room Air 12/22/16 08:19 160/92 12/22/16 08:19 72 160/92 Intake and Output 12/22/16 12/23/16 19:00 07:00 Intake Total 1035 ml 925 ml Balance 1035 ml 925 ml Intake Oral 360 ml 120 ml IV Total 675 ml 805 ml # Voids 3 2 Laboratory Tests 12/23/16 04:50: White Blood Count 8.2, Red Blood Count 4.05L, Hemoglobin 12.2, Hematocrit 36.5L , Mean Corpuscular Volume 90, Mean Corpuscular Hemoglobin 30.1, Mean Corpuscular Hemoglobin Concent 33.4, Red Cell Distribution Width 12.4, Platelet Count 227, Mean Platelet Volume 6.0L, Neutrophils (%) (Auto) 57.9, Lymphocytes ( %) (Auto) 26.7, Monocytes (%) (Auto) 10.6H, Eosinophils (%) (Auto) 4.1H, Basophils (%) (Auto) 0.8, Sodium Level 138, Potassium Level 3.9, Chloride Level 102, Carbon Dioxide Level 21, Anion Gap 15, Blood Urea Nitrogen 11, Creatinine 1.6H, Estimat Glomerular Filtration Rate , Glucose Level 103, Calcium Level 8.2L Height (Feet): 5 Height (Inches): 3.00 Weight (Pounds): 88 General Appearance: alert EENT: PERRL/EOMI Neck: supple Cardiovascular: normal rate Respiratory/Chest: lungs clear Abdomen: normal bowel sounds, non tender, soft Extremities: non-tender MARVIN HATFIELD December 23, 2016 07:56
[2016-12-23] MEDS: Heparin 5000 units/ml inj SUBQ SCH ×2 (09:13→21:00)
[2016-12-23] MEDS: HydrALAZINE 50mg tab ORAL SCH ×3 (09:13→17:30)
[2016-12-23] MEDS: D5 1/2NS 1,000 ML IV SCH ×2 (09:16→23:12)
[2016-12-23] MEDS ORDERED: Bisacodyl EC 5mg tab ORAL ONE (13:00)
--- NOTE | 2016-12-23 14:02 | Consultation ---
Consult Note Consult Note ID Dic# [id number] YADY BROWN M.D. December 23, 2016 14:02
[2016-12-23] MEDS ORDERED: Polyethylene Glycol 238gm bottle ORAL ONE (15:00)
--- NOTE | 2016-12-23 17:18 | Internal Med Progress Note ---
Subjective Date of Service: December 23, 2016 Physician Name Emigdio Odell Attending Physician Rad Odell MD Current Medications Medications (Trade) Dose Ordered Sig/Shivani Route PRN Reason Start Time Stop Time Status Last Admin Dose Admin Acetaminophen (Tylenol) 650 mg Q4H PRN ORAL T>100.5 12/20/16 15:00 01/19/17 14:59 Al Hydroxide/Mg Hydroxide (Mylanta II) 30 ml Q6H PRN ORAL dyspepsia 12/20/16 15:00 01/19/17 14:59 Atorvastatin Calcium (Lipitor) 10 mg BEDTIME ORAL 12/20/16 21:00 01/19/17 20:59 12/22/16 20:54 Ceftriaxone Sodium/Dextrose (Rocephin/D5W) 55 ml @ 110 mls/hr Q24H IVPB 12/21/16 02:00 12/28/16 01:59 12/23/16 01:33 Clonidine HCl (Catapres) 0.1 mg Q4H PRN ORAL sbp more then 160 12/20/16 15:00 01/19/17 14:59 12/22/16 12:12 Dextrose (Dextrose 50%) STAT PRN IV Hypoglycemia 12/20/16 15:00 01/19/17 14:59 Dextrose/Sodium Chloride (D5 0.45% NS) 1,000 ml @ 75 mls/hr [id number] IV 12/20/16 15:00 01/19/17 14:59 12/23/16 09:16 Diphenhydramine HCl (Benadryl) 25 mg Q6H PRN ORAL Itching/Pruritis 12/20/16 15:00 01/19/17 14:59 Heparin Sodium (Porcine) (Heparin 5000 units/ml) 5,000 units EVERY 12 HOURS SUBQ 12/23/16 09:00 01/22/17 08:59 12/23/16 09:13 Hydralazine HCl (Apresoline) 50 mg TID ORAL 12/20/16 18:00 01/19/17 17:59 12/23/16 12:55 Lorazepam (Ativan 2mg/ml 1ml) 1 mg Q4H PRN IV agitation 12/20/16 15:00 12/27/16 14:59 Metoclopramide HCl (Reglan) 10 mg Q6H PRN IVP N/V IF ZOFRAN INEFFECTIVE 12/20/16 19:00 01/19/17 18:59 Metoprolol Succinate (Toprol XL) 25 mg Q12HR ORAL 12/20/16 21:00 01/19/17 20:59 12/23/16 09:13 Morphine Sulfate (Morphine Sulfate) 2 mg Q4H PRN IVP Severe Pain (Pain Scale 7-10) 12/20/16 15:00 12/27/16 14:59 Nitroglycerin (Ntg) 0.4 mg Q5M X 3 DOSES PRN SL Prn Chest Pain 12/20/16 15:00 01/19/17 14:59 Ondansetron HCl (Zofran) 4 mg Q6H PRN IVP Nausea & Vomiting 12/20/16 15:00 01/19/17 14:59 Pantoprazole (Protonix) 40 mg DAILY ORAL 12/23/16 09:00 01/22/17 08:59 12/23/16 09:13 Polyethylene Glycol (Miralax) 17 gm HSPRN PRN ORAL Constipation 12/20/16 21:00 01/19/17 20:59 Promethazine HCl/ Codeine (Phenergan with Codeine) 5 ml Q6HR PRN ORAL For Cough 12/22/16 13:00 01/21/17 12:59 Temazepam 15 mg 15 mg HSPRN PRN ORAL Insomnia 12/20/16 21:00 12/27/16 20:59 Allergies: Coded Allergies: NO KNOWN DRUG ALLERGIES (Unverified Allergy, Unknown, 07/14/14) ROS Limited/Unobtainable: No Constitutional: Reports: no symptoms HEENT: Reports: no symptoms Cardiovascular: Reports: no symptoms Respiratory: Reports: no symptoms Gastrointestinal/Abdominal: Reports: abdominal pain Genitourinary: Reports: no symptoms Neurologic/Psychiatric: Reports: no symptoms Subjective 86 YO F admitted with abdominal pain. S/P endoscopy on 12/20/16; colonoscopy scheduled for 12/24/16. Cover for Miya Odell Objective Last Vital Signs Date Time Temp Pulse Resp B/P Pulse Ox O2 Delivery O2 Flow Rate FiO2 12/23/16 16:00 97.6 90 18 171/96 98 Room Air 12/21/16 04:00 3.0 Laboratory Tests Test 12/23/16 04:50 White Blood Count 8.2 K/UL (4.8-10.8) Red Blood Count 4.05 M/UL (4.20-5.40) L Hemoglobin 12.2 G/DL (12.0-16.0) Hematocrit 36.5 % (37.0-47.0) L Mean Corpuscular Volume 90 FL (80-99) Mean Corpuscular Hemoglobin 30.1 PG (27.0-31.0) Mean Corpuscular Hemoglobin Concent 33.4 G/DL (32.0-36.0) Red Cell Distribution Width 12.4 % (11.6-14.8) Platelet Count 227 K/UL (150-450) Mean Platelet Volume 6.0 FL (6.5-10.1) L Neutrophils (%) (Auto) 57.9 % (45.0-75.0) Lymphocytes (%) (Auto) 26.7 % (20.0-45.0) Monocytes (%) (Auto) 10.6 % (1.0-10.0) H Eosinophils (%) (Auto) 4.1 % (0.0-3.0) H Basophils (%) (Auto) 0.8 % (0.0-2.0) Sodium Level 138 mEQ/L (135-145) Potassium Level 3.9 mEQ/L (3.4-4.9) Chloride Level 102 mEQ/L (98-107) Carbon Dioxide Level 21 mEQ/L (20-30) Anion Gap 15 (5-15) Blood Urea Nitrogen 11 mg/dL (7-23) Creatinine 1.6 mg/dL (0.5-0.9) H Estimat Glomerular Filtration Rate mL/min (>60) Glucose Level 103 mg/dL (74-106) Calcium Level 8.2 mg/dL (8.6-10.2) L Intake and Output 12/22/16 12/23/16 19:00 07:00 Intake Total 1035 ml 925 ml Balance 1035 ml 925 ml Intake Oral 360 ml 120 ml IV Total 675 ml 805 ml # Voids 3 2 Objective General: alert, cooperative, no distress, appears stated age Head: normocephalic, without obvious abnormality, atraumatic Eyes: conjunctivae/corneas clear. PERRL, EOM's intact Throat: lips, mucosa, and tongue normal. MMM Neck: supple, symmetrical, trachea midline, and no JVD Lungs: clear to auscultation bilaterally Heart: regular rate and rhythm, S1, S2 normal, no murmur, click, rub or gallop Abdomen: soft, tender to palpation epigastric, non-distended, bowel sounds normal; no masses or organomegaly Extremities: extremities normal, atraumatic, no cyanosis or edema Pulses: 2+ and symmetric Skin: skin color, texture, turgor normal; no rashes or lesions Neurologic: grossly normal, no focal deficits Assessment/Plan Problem List: (1) Cerebral vascular disease (2) Ulcer, gastric, acute Assessment & Plan: S/P endoscopy on 12/20/16. See GI note. Cont protonix (3) Gastritis and duodenitis (4) Abdominal pain Assessment & Plan: Await colonoscopy on 12/24/16 (5) Nausea & vomiting (6) HTN (hypertension) Assessment & Plan: Cont toprolol and hydralazine (7) Renal failure Assessment/Plan Discharge planning EMIGDIO ODELL December 23, 2016 17:18
[2016-12-23] MEDS ORDERED: D5 1/2NS 1000ml IV ONE (17:44)
--- NOTE | 2016-12-23 21:15 | Consultation ---
DATE OF CONSULTATION: INFECTIOUS DISEASE CONSULTATION CONSULTING PHYSICIAN: Lance Vears M.D. REQUESTING PHYSICIAN: Juan José Varela M.D. REASON FOR CONSULTATION: Evaluation of the patient for leukocytosis, possible need for antibiotics. HISTORY OF PRESENT ILLNESS: The patient is an 86-year-old female, who was admitted to this medical center with abdominal pain and nonbloody vomiting. The patient did not have any diarrhea. At the time of admission, the patient was found to have leukocytosis. An Infectious Disease consultation has been requested for further evaluation of the patient and possible need for antibiotic treatment. PAST MEDICAL HISTORY: 1. Hypertension. 2. CKD. 3. Hyperlipidemia. 4. History of CVA. 5. History of hysterectomy. MEDICATIONS: Rocephin. ALLERGIES: No known drug allergies. SOCIAL HISTORY: Negative for alcohol, drug abuse, and smoking. FAMILY HISTORY: Noncontributory. REVIEW OF SYSTEMS: The patient is not able to provide information. Most of the information I was able to gathered mentioned above. PHYSICAL EXAMINATION: VITAL SIGNS: Temperature 97.9 degrees, blood pressure 150/78, pulse 79, and respiratory rate 18. HEENT: Mild pale conjunctivae. No icterus. NECK: No lymphadenopathy. CHEST: Coarse breathing sounds. HEART: S1 and S2. ABDOMEN: Soft and nontender. EXTREMITIES: No cyanosis. NEUROLOGIC: Awake. LABORATORY DATA: White blood cells 8, hemoglobin 12, and platelets 227,000. Stool occult blood is positive. BUN 11 and creatinine 0.6. Liver function tests are unremarkable. Chest x-ray, unremarkable. CT scan of the abdomen and pelvis, slight infiltration of preduodenal and peripancreatic fat, this is a possible duodenitis, a 2 cm low attenuation lesion within the liver, diverticulosis. ASSESSMENT: The patient is an 86-year-old female with multiple medical problems, who has been admitted to this medical center for abdominal pain, underwent upper endoscopy that showed hiatal hernia, gastric ulcer, and gastritis. The patient is scheduled for colonoscopy tomorrow. The patient's white blood cells has improved and there is no pending cultures at this time. PLAN: 1. We will continue the patient on IV Rocephin for now. 2. Monitor CBC. 3. Monitor BMP. 4. Colonoscopy tomorrow. 5. If the patient stays stable and afebrile, we may discontinue antibiotics soon. Thank you, Dr. Varela, for allowing me to participate in the care of this patient. I will follow the patient with you during this hospitalization. Lance Veras M.D. DR: CLARITA JOB#: [id number] CC:
--- NOTE | 2016-12-23 22:47 | Pulmonology Progress Note ---
Assessment/Plan Problems: (1) Accelerated hypertension (2) Intractable nausea and vomiting (3) Intractable abdominal pain (4) Leukocytosis Assessment/Plan advance diet f/u wbc, no sign of infection PPI f/u GI recommendation endoscopy renal w/u echo results noted Subjective ROS Limited/Unobtainable: No Interval Events: comfortable Allergies: Coded Allergies: NO KNOWN DRUG ALLERGIES (Unverified Allergy, Unknown, 07/14/14) Objective Last 24 Hour Vital Signs Date Time Temp Pulse Resp B/P Pulse Ox O2 Delivery O2 Flow Rate FiO2 12/23/16 21:04 89 172/76 12/23/16 19:54 98.1 89 20 172/76 97 Room Air 12/23/16 17:30 171/96 12/23/16 16:00 97.6 90 18 171/96 98 Room Air 12/23/16 12:55 150/78 12/23/16 12:09 97.9 79 18 150/78 97 Room Air 12/23/16 09:13 158/84 12/23/16 09:13 66 158/84 12/23/16 08:00 97.3 66 18 158/84 97 Room Air 12/23/16 04:00 98.1 71 20 146/81 97 Room Air 12/23/16 01:16 98 Room Air 12/23/16 00:00 98.1 74 20 117/76 Room Air Intake and Output 12/22/16 12/23/16 19:00 07:00 Intake Total 1035 ml 925 ml Balance 1035 ml 925 ml Intake Oral 360 ml 120 ml IV Total 675 ml 805 ml # Voids 3 2 General Appearance: WD/WN HEENT: normocephalic Respiratory/Chest: chest wall non-tender Breasts: no masses Cardiovascular: normal peripheral pulses Abdomen: normal bowel sounds, soft, non tender Extremities: no cyanosis Laboratory Tests 12/23/16 04:50: White Blood Count 8.2, Red Blood Count 4.05L, Hemoglobin 12.2, Hematocrit 36.5L , Mean Corpuscular Volume 90, Mean Corpuscular Hemoglobin 30.1, Mean Corpuscular Hemoglobin Concent 33.4, Red Cell Distribution Width 12.4, Platelet Count 227, Mean Platelet Volume 6.0L, Neutrophils (%) (Auto) 57.9, Lymphocytes ( %) (Auto) 26.7, Monocytes (%) (Auto) 10.6H, Eosinophils (%) (Auto) 4.1H, Basophils (%) (Auto) 0.8, Sodium Level 138, Potassium Level 3.9, Chloride Level 102, Carbon Dioxide Level 21, Anion Gap 15, Blood Urea Nitrogen 11, Creatinine 1.6H, Estimat Glomerular Filtration Rate , Glucose Level 103, Calcium Level 8.2L Current Medications Medications (Trade) Dose Ordered Sig/Shivani Route PRN Reason Start Time Stop Time Status Last Admin Dose Admin Acetaminophen (Tylenol) 650 mg Q4H PRN ORAL T>100.5 12/20/16 15:00 01/19/17 14:59 Al Hydroxide/Mg Hydroxide (Mylanta II) 30 ml Q6H PRN ORAL dyspepsia 12/20/16 15:00 01/19/17 14:59 Atorvastatin Calcium (Lipitor) 10 mg BEDTIME ORAL 12/20/16 21:00 01/19/17 20:59 12/23/16 21:04 Ceftriaxone Sodium/Dextrose (Rocephin/D5W) 55 ml @ 110 mls/hr Q24H IVPB 12/21/16 02:00 12/28/16 01:59 12/23/16 01:33 Clonidine HCl (Catapres) 0.1 mg Q4H PRN ORAL sbp more then 160 12/20/16 15:00 01/19/17 14:59 12/22/16 12:12 Dextrose (Dextrose 50%) STAT PRN IV Hypoglycemia 12/20/16 15:00 01/19/17 14:59 Dextrose/Sodium Chloride (D5 0.45% NS) 1,000 ml @ 75 mls/hr [id number] IV 12/20/16 15:00 01/19/17 14:59 12/23/16 09:16 Diphenhydramine HCl (Benadryl) 25 mg Q6H PRN ORAL Itching/Pruritis 12/20/16 15:00 01/19/17 14:59 Heparin Sodium (Porcine) (Heparin 5000 units/ml) 5,000 units EVERY 12 HOURS SUBQ 12/23/16 09:00 01/22/17 08:59 12/23/16 09:13 Hydralazine HCl (Apresoline) 50 mg TID ORAL 12/20/16 18:00 01/19/17 17:59 12/23/16 17:30 Lorazepam (Ativan 2mg/ml 1ml) 1 mg Q4H PRN IV agitation 12/20/16 15:00 12/27/16 14:59 Metoclopramide HCl (Reglan) 10 mg Q6H PRN IVP N/V IF ZOFRAN INEFFECTIVE 12/20/16 19:00 01/19/17 18:59 Metoprolol Succinate (Toprol XL) 25 mg Q12HR ORAL 12/20/16 21:00 01/19/17 20:59 12/23/16 21:04 Morphine Sulfate (Morphine Sulfate) 2 mg Q4H PRN IVP Severe Pain (Pain Scale 7-10) 12/20/16 15:00 12/27/16 14:59 Nitroglycerin (Ntg) 0.4 mg Q5M X 3 DOSES PRN SL Prn Chest Pain 12/20/16 15:00 01/19/17 14:59 Ondansetron HCl (Zofran) 4 mg Q6H PRN IVP Nausea & Vomiting 12/20/16 15:00 01/19/17 14:59 12/23/16 21:46 Pantoprazole (Protonix) 40 mg DAILY ORAL 12/23/16 09:00 01/22/17 08:59 12/23/16 09:13 Polyethylene Glycol (Miralax) 17 gm HSPRN PRN ORAL Constipation 12/20/16 21:00 01/19/17 20:59 Promethazine HCl/ Codeine (Phenergan with Codeine) 5 ml Q6HR PRN ORAL For Cough 12/22/16 13:00 01/21/17 12:59 Temazepam 15 mg 15 mg HSPRN PRN ORAL Insomnia 12/20/16 21:00 12/27/16 20:59 MILAGROS URIARTE December 23, 2016 22:47
[2016-12-24] VITALS (9 sets, daily range): BP systolic 112–168; BP diastolic 60–94
[2016-12-24] MEDS: cefTRIAXone 1 GM in D5W 55 ML IVPB SCH (02:15)
[2016-12-24 06:53] LABS: BASOPHILS % (AUTO) 0.6 % (0.0-2.0); EOSINOPHILS % (AUTO) 0.7 % (0.0-3.0); LYMPHOCYTES % (AUTO) 14.6 % (20.0-45.0); MEAN CORPUSCULAR HEMOGLOBIN 30.3 PG (27.0-31.0); MEAN CORPUSCULAR HGB CONC 33.7 G/DL (32.0-36.0); MEAN CORPUSCULAR VOLUME 90 FL (80-99); MONOCYTES % (AUTO) 9.2 % (1.0-10.0); NEUTROPHILS % (AUTO) 74.9 % (45.0-75.0); PLATELET COUNT 244 K/UL (150-450); RED CELL DISTRIBUTION WIDTH 12.4 % (11.6-14.8); WHITE BLOOD COUNT 11.2 K/UL (4.8-10.8)
[2016-12-24 07:09] LABS: ANION GAP 15 (5-15); CALCIUM 8.8 mg/dL (8.6-10.2); CARBON DIOXIDE 23 mEQ/L (20-30); CHLORIDE 104 mEQ/L (98-107); CREATININE 1.6 mg/dL (0.5-0.9); HEMOLYSIS 2; POTASSIUM 3.2 mEQ/L (3.4-4.9); SODIUM 142 mEQ/L (135-145)
[2016-12-24] MEDS ORDERED: Fleet's Enema 133ml RECTAL ONE (07:45)
[2016-12-24] MEDS: HydrALAZINE 50mg tab ORAL SCH ×3 (08:28→17:05)
[2016-12-24] MEDS: Heparin 5000 units/ml inj SUBQ SCH (08:34)
--- NOTE | 2016-12-24 09:03 | Cardiology Progress Note ---
Assessment/Plan Assessment/Plan 1. Sinus tachycardia resolved, continue metoprolol. 2. Mild mitral and aortic regurgitation with normal LVEF. 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 4. Hx of HTN, increase metoprolol, continue hydralazine and lisinopril, add amlodipine 5mg daily. Subjective Subjective No cardiac events. Objective Last 24 Hour Vital Signs Date Time Temp Pulse Resp B/P Pulse Ox O2 Delivery O2 Flow Rate FiO2 12/24/16 08:29 168/94 12/24/16 08:28 168/94 12/24/16 08:28 76 168/94 12/24/16 07:57 96.9 76 11 168/94 98 Room Air 12/24/16 04:02 98.0 80 20 155/79 99 Room Air 12/24/16 00:05 183/92 12/23/16 23:58 97.5 84 18 189/91 97 Room Air 12/23/16 21:04 89 172/76 12/23/16 19:54 98.1 89 20 172/76 97 Room Air 12/23/16 17:30 171/96 12/23/16 16:00 97.6 90 18 171/96 98 Room Air 12/23/16 12:55 150/78 12/23/16 12:09 97.9 79 18 150/78 97 Room Air 12/23/16 09:13 158/84 12/23/16 09:13 66 158/84 Intake and Output 12/23/16 12/24/16 19:00 07:00 Intake Total 615 ml 505 ml Balance 615 ml 505 ml Intake Oral 240 ml IV Total 375 ml 505 ml # Voids 4 3 2D Echo: LVEF 60%, Mild MR, Mild AR, Borderline LVH, RVSP 30 mmHg Laboratory Tests Test 12/24/16 05:20 White Blood Count 11.2 K/UL (4.8-10.8) H Red Blood Count 4.10 M/UL (4.20-5.40) L Hemoglobin 12.4 G/DL (12.0-16.0) Hematocrit 36.8 % (37.0-47.0) L Mean Corpuscular Volume 90 FL (80-99) Mean Corpuscular Hemoglobin 30.3 PG (27.0-31.0) Mean Corpuscular Hemoglobin Concent 33.7 G/DL (32.0-36.0) Red Cell Distribution Width 12.4 % (11.6-14.8) Platelet Count 244 K/UL (150-450) Mean Platelet Volume 6.0 FL (6.5-10.1) L Neutrophils (%) (Auto) 74.9 % (45.0-75.0) Lymphocytes (%) (Auto) 14.6 % (20.0-45.0) L Monocytes (%) (Auto) 9.2 % (1.0-10.0) Eosinophils (%) (Auto) 0.7 % (0.0-3.0) Basophils (%) (Auto) 0.6 % (0.0-2.0) Sodium Level 142 mEQ/L (135-145) Potassium Level 3.2 mEQ/L (3.4-4.9) L Chloride Level 104 mEQ/L (98-107) Carbon Dioxide Level 23 mEQ/L (20-30) Anion Gap 15 (5-15) Blood Urea Nitrogen 13 mg/dL (7-23) Creatinine 1.6 mg/dL (0.5-0.9) H Estimat Glomerular Filtration Rate mL/min (>60) Glucose Level 119 mg/dL (74-106) H Calcium Level 8.8 mg/dL (8.6-10.2) Objective HEENT: Atraumatic and normocephalic. Pupils are equal, round, and reactive to light and accommodation. Extraocular muscles intact. The patient had left facial droop. NECK: JVP is less than 5 cm. No carotid bruits. Carotid upstrokes 2+ bilaterally. CARDIOVASCULAR: Normal S1 and S2. Regular rate and rhythm. A 2/6 mid systolic murmur at left sternal border. PMI is at fourth intercoastal space at midclavicular line. LUNGS: Clear to auscultation bilaterally. ABDOMEN: Soft, nontender and nondistended. No hepatosplenomegaly. Positive bowel sounds. EXTREMITIES: No evidence of edema, clubbing, or cyanosis. SHAYY SALAS December 24, 2016 09:03
--- NOTE | 2016-12-24 09:59 | Diagnostic Imaging Report ---
Indication: Abdominal pain Technique: Mcconnell-scale and duplex images of the upper abdomen were obtained Comparison: Abdomen pelvis CT of earlier the same day Findings: Gallbladder is unremarkable, without stones, wall thickening, nor pericholecystic fluid. Sonographic Brantley's sign is negative. Common bile duct measures 4 mm in diameter. No intrahepatic biliary ductal dilatation. Liver demonstrates normal echogenicity. Very questionable 18 mm hypoechoic mass is seen within the left hepatic lobe. No corresponding abnormality is seen on CT. Within the right hepatic lobe, there is a poorly defined poorly visualized hypoechoic mass measuring 2.2 x 1.9 cm, corresponding in location and appearance to the lesion described on recent CT scan. This is not clearly cystic . Portal vein and hepatic veins are patent. Pancreas is unremarkable. Spleen is unremarkable. Left kidney measures 7.7 cm in length. Right kidney measures 8.5 cm length. Both kidneys demonstrate normal echogenicity. There is no hydronephrosis. No focal abnormality . Non-aneurysmal abdominal aorta . Impression: Negative for gallstones or dilated ducts Poorly visualized 22 mm hypoechoic lesion within the right hepatic lobe, presumably corresponding to abnormality described on recent CT scan, not clearly cystic. Neoplasm not excludable Questionable 18 mm hypoechoic mass within the left hepatic lobe, no associated CT abnormality. Neoplasm likewise not excludable if real. Consider contrast CT or MRI for further evaluation to confirm presence or absence and to better characterize if clinically indicated
--- NOTE | 2016-12-24 10:44 | Infectious Diseases Prog Note ---
Assessment/Plan Assessment/Plan A: The patient is an 86-year-old female, Leukocytosis , mild no clinical significance at this time SP abdominal pain and nonbloody vomiting SP upper endoscopy: hiatal hernia, gastric ulcer, and gastritis US: Negative for gallstones or dilated ducts CT : : possible duodenitis, a 2 cm low attenuation lesion within the liver, diverticulosis No diarrhea HTN CKD Hyperlipidemia History of CVA History of hysterectomy PLAN: DC IV Rocephin d# 4 Monitor CBC Monitor BMP. Colonoscopy Subjective Constitutional: Denies: anorexia, chills, drenching sweats, fatigue, fever, no symptoms, other Allergies: Coded Allergies: NO KNOWN DRUG ALLERGIES (Unverified Allergy, Unknown, 07/14/14) Objective Vital Signs Last 24 Hour Vital Signs Date Time Temp Pulse Resp B/P Pulse Ox O2 Delivery O2 Flow Rate FiO2 12/24/16 09:51 76 168/94 12/24/16 08:29 168/94 12/24/16 08:28 168/94 12/24/16 08:28 76 168/94 12/24/16 07:57 96.9 76 11 168/94 98 Room Air 12/24/16 04:02 98.0 80 20 155/79 99 Room Air 12/24/16 00:05 183/92 12/23/16 23:58 97.5 84 18 189/91 97 Room Air 12/23/16 21:04 89 172/76 12/23/16 19:54 98.1 89 20 172/76 97 Room Air 12/23/16 17:30 171/96 12/23/16 16:00 97.6 90 18 171/96 98 Room Air 12/23/16 12:55 150/78 12/23/16 12:09 97.9 79 18 150/78 97 Room Air Height (Feet): 5 Height (Inches): 3.00 Weight (Pounds): 88 HEENT: atraumatic Respiratory/Chest: no respiratory distress Cardiovascular: regular rhythm Abdomen: non distended Laboratory Tests Test 12/24/16 05:20 White Blood Count 11.2 K/UL (4.8-10.8) H Red Blood Count 4.10 M/UL (4.20-5.40) L Hemoglobin 12.4 G/DL (12.0-16.0) Hematocrit 36.8 % (37.0-47.0) L Mean Corpuscular Volume 90 FL (80-99) Mean Corpuscular Hemoglobin 30.3 PG (27.0-31.0) Mean Corpuscular Hemoglobin Concent 33.7 G/DL (32.0-36.0) Red Cell Distribution Width 12.4 % (11.6-14.8) Platelet Count 244 K/UL (150-450) Mean Platelet Volume 6.0 FL (6.5-10.1) L Neutrophils (%) (Auto) 74.9 % (45.0-75.0) Lymphocytes (%) (Auto) 14.6 % (20.0-45.0) L Monocytes (%) (Auto) 9.2 % (1.0-10.0) Eosinophils (%) (Auto) 0.7 % (0.0-3.0) Basophils (%) (Auto) 0.6 % (0.0-2.0) Sodium Level 142 mEQ/L (135-145) Potassium Level 3.2 mEQ/L (3.4-4.9) L Chloride Level 104 mEQ/L (98-107) Carbon Dioxide Level 23 mEQ/L (20-30) Anion Gap 15 (5-15) Blood Urea Nitrogen 13 mg/dL (7-23) Creatinine 1.6 mg/dL (0.5-0.9) H Estimat Glomerular Filtration Rate mL/min (>60) Glucose Level 119 mg/dL (74-106) H Calcium Level 8.8 mg/dL (8.6-10.2) Current Medications Medications (Trade) Dose Ordered Sig/Shivani Route PRN Reason Start Time Stop Time Status Last Admin Dose Admin Acetaminophen (Tylenol) 650 mg Q4H PRN ORAL T>100.5 12/20/16 15:00 01/19/17 14:59 Al Hydroxide/Mg Hydroxide (Mylanta II) 30 ml Q6H PRN ORAL dyspepsia 12/20/16 15:00 01/19/17 14:59 Amlodipine Besylate (Norvasc) 5 mg DAILY ORAL 12/24/16 09:15 01/23/17 09:14 12/24/16 09:51 Atorvastatin Calcium (Lipitor) 10 mg BEDTIME ORAL 12/20/16 21:00 01/19/17 20:59 12/23/16 21:04 Ceftriaxone Sodium/Dextrose (Rocephin/D5W) 55 ml @ 110 mls/hr Q24H IVPB 12/21/16 02:00 12/28/16 01:59 12/24/16 02:15 Clonidine HCl (Catapres) 0.1 mg Q4H PRN ORAL sbp more then 160 12/20/16 15:00 01/19/17 14:59 12/24/16 08:29 Dextrose (Dextrose 50%) STAT PRN IV Hypoglycemia 12/20/16 15:00 01/19/17 14:59 Dextrose/Sodium Chloride (D5 0.45% NS) 1,000 ml @ 75 mls/hr [id number] IV 12/20/16 15:00 01/19/17 14:59 12/23/16 23:12 Diphenhydramine HCl (Benadryl) 25 mg Q6H PRN ORAL Itching/Pruritis 12/20/16 15:00 01/19/17 14:59 Heparin Sodium (Porcine) (Heparin 5000 units/ml) 5,000 units EVERY 12 HOURS SUBQ 12/23/16 09:00 01/22/17 08:59 12/23/16 09:13 Hydralazine HCl (Apresoline) 50 mg TID ORAL 12/20/16 18:00 01/19/17 17:59 12/24/16 08:28 Lorazepam (Ativan 2mg/ml 1ml) 1 mg Q4H PRN IV agitation 12/20/16 15:00 12/27/16 14:59 Metoclopramide HCl (Reglan) 10 mg Q6H PRN IVP N/V IF ZOFRAN INEFFECTIVE 12/20/16 19:00 01/19/17 18:59 Metoprolol Succinate (Toprol XL) 50 mg Q12HR ORAL 12/24/16 21:00 01/23/17 20:59 Morphine Sulfate (Morphine Sulfate) 2 mg Q4H PRN IVP Severe Pain (Pain Scale 7-10) 12/20/16 15:00 12/27/16 14:59 Nitroglycerin (Ntg) 0.4 mg Q5M X 3 DOSES PRN SL Prn Chest Pain 12/20/16 15:00 01/19/17 14:59 Ondansetron HCl (Zofran) 4 mg Q6H PRN IVP Nausea & Vomiting 12/20/16 15:00 01/19/17 14:59 12/23/16 21:46 Pantoprazole (Protonix) 40 mg DAILY ORAL 12/23/16 09:00 01/22/17 08:59 12/24/16 08:28 Polyethylene Glycol (Miralax) 17 gm HSPRN PRN ORAL Constipation 12/20/16 21:00 01/19/17 20:59 Promethazine HCl/ Codeine (Phenergan with Codeine) 5 ml Q6HR PRN ORAL For Cough 12/22/16 13:00 01/21/17 12:59 Temazepam 15 mg 15 mg HSPRN PRN ORAL Insomnia 12/20/16 21:00 12/27/16 20:59 YADY BROWN M.D. December 24, 2016 10:44
[2016-12-24] MEDS ORDERED: LR 1000ml ONE (12:00)
[2016-12-24] MEDS ORDERED: Midazolam 2mg/2ml Inj ONE (12:00)
[2016-12-24] MEDS ORDERED: fentaNYL 100 mcg/2 mL IV ONE (12:00)
[2016-12-24] MEDS ORDERED: Propofol 10mg/ml 20ml IV ONE (12:00)
--- NOTE | 2016-12-24 12:07 | Anethesia Preoperative Eval ---
Anesthesia Pre-op PMH/ROS General Date of Evaluation: December 24, 2016 Time of Evaluation: 12:02 Anesthesiologist: Odette ASA Score: ASA 3 Mallampati Score Class I : Soft palate, uvula, fauces, pillars visible Class II: Soft palate, uvula, fauces visible Class III: Soft palate, base of uvula visible Class IV: Only hard plate visible Mallampati Classification: Class II Surgeon: Ronald Diagnosis: Abdominal pain Surgical Procedure: Colonoscopy Anesthesia History: none Family History: no anesthesia problems Allergies: Coded Allergies: NO KNOWN DRUG ALLERGIES (Unverified Allergy, Unknown, 07/14/14) Medications: see eMAR Past Medical History Cardiovascular: Reports: CAD, HTN, Denies: NE, arrhythmia, other, valve dz Pulmonary: Denies: COPD, JUAN DANIEL, asthma, other Gastrointestinal/Genitourinary: Reports: CRI, GERD Neurologic/Psychiatric: Reports: CVA, dementia, Denies: TIA, depression/anxiety, other Endocrine: Reports: hypothyroidism HEENT: Reports: cataract (L), cataract (R) Hematology/Immune: Denies: DVT, anemia, bleeding disorder, other Musculoskeletal/Integumentary: Reports: DJD, Denies: DDD, OA, RA, edema, other Other: other - Malnourished PMH Narrative: as above PSxH Narrative: Hysterectomy Anesthesia Pre-op Phys. Exam Physician Exam Last Vital Signs Date Time Temp Pulse Resp B/P Pulse Ox O2 Delivery O2 Flow Rate FiO2 12/24/16 11:35 96.0 14 118/65 96 Room Air 12/24/16 09:51 76 12/21/16 04:00 3.0 Constitutional: NAD Neurologic: other - unable to obtain Cardiovascular: RRR, no M/R/G Respiratory: CTA Gastrointestinal: S/NT/ND Airway Exam Mallampati Score: Class II MO: limited Neck: stiff ROM: limited Teeth: missing Dentures: no lower, no upper Anesthesia Pre-op A/P Labs Hematology Test 12/24/16 05:20 White Blood Count 11.2 K/UL (4.8-10.8) H Red Blood Count 4.10 M/UL (4.20-5.40) L Hemoglobin 12.4 G/DL (12.0-16.0) Hematocrit 36.8 % (37.0-47.0) L Mean Corpuscular Volume 90 FL (80-99) Mean Corpuscular Hemoglobin 30.3 PG (27.0-31.0) Mean Corpuscular Hemoglobin Concent 33.7 G/DL (32.0-36.0) Red Cell Distribution Width 12.4 % (11.6-14.8) Platelet Count 244 K/UL (150-450) Mean Platelet Volume 6.0 FL (6.5-10.1) L Neutrophils (%) (Auto) 74.9 % (45.0-75.0) Lymphocytes (%) (Auto) 14.6 % (20.0-45.0) L Monocytes (%) (Auto) 9.2 % (1.0-10.0) Eosinophils (%) (Auto) 0.7 % (0.0-3.0) Basophils (%) (Auto) 0.6 % (0.0-2.0) Chemistry Test 12/24/16 05:20 Sodium Level 142 mEQ/L (135-145) Potassium Level 3.2 mEQ/L (3.4-4.9) L Chloride Level 104 mEQ/L (98-107) Carbon Dioxide Level 23 mEQ/L (20-30) Anion Gap 15 (5-15) Blood Urea Nitrogen 13 mg/dL (7-23) Creatinine 1.6 mg/dL (0.5-0.9) H Estimat Glomerular Filtration Rate mL/min (>60) Glucose Level 119 mg/dL (74-106) H Calcium Level 8.8 mg/dL (8.6-10.2) Studies Pre-op Studies: EKG - SR Risk Assessment & Plan Assessment: ASA 3 Plan: MAC Status Change Before Surgery: No Pre-Antibiotics Drug: none CONNIE CALDERON M.D. December 24, 2016 12:07
[2016-12-24] MEDS ORDERED: NS 550ML IV ONE (12:15)
--- NOTE | 2016-12-24 12:15 | Pre-Procedure Note/Attestation ---
Pre-Procedure Note/Attestation Complete Prior to Procedure Planned Procedure: not applicable Procedure Narrative: colonoscopy Indications for Procedure Pre-Operative Diagnosis: anemia Attestation I attest that I discussed the nature of the procedure; its benefits; risks and complications; and alternatives (and the risks and benefits of such alternatives ), prior to the procedure, with the patient (or the patient's legal rental sales representative). I attest that, if there was a reasonable possibility of needing a blood transfusion, the patient (or the patient's legal rental sales representative) was given the [facility] standardized written summary, pursuant to the Efraín Grey Blood Safety Act ([place] Health and Safety Code # 1645, as amended). I attest that I re-evaluated the patient just prior to the surgery and that there has been no change in the patient's H&P, except as documented below: MARVIN HATFIELD December 24, 2016 12:15
[2016-12-24] MEDS: D5 1/2NS 1,000 ML IV SCH (12:20)
[2016-12-24] MEDS ORDERED: fentaNYL 100 mcg/2 mL IV PRN (12:30)
--- NOTE | 2016-12-24 12:31 | Endoscopy Procedure Note ---
Endoscopy Procedure Note Indication for Procedure: anemia Procedures Performed: colonoscopy Operative Findings/Diagnosis: diverticulosis Specimen: none Pt Tolerated Procedure Well: Yes Estimated Blood Loss: none Anesthesiologist: min Anesthesia: MAC Implant(s) used?: No 50 yrs or older w/o bx or poly: Not Applicable 10yrs. F/U not recommended: Not Applicable MARVIN HATFIELD December 24, 2016 12:31
--- NOTE | 2016-12-24 13:04 | Immediate Post-Op Evaluation ---
Immediate Post-Op Evalulation Immediate Post-Op Evalulation Procedure: colonoscopy Date of Evaluation: December 24, 2016 Time of Evaluation: 12:38 IV Fluids: 200 Blood Products: none Estimated Blood Loss: none Urinary Output: none Blood Pressure Systolic: 108 Blood Pressure Diastolic: 56 Pulse Rate: 72 Respiratory Rate: 20 O2 Sat by Pulse Oximetry: 99 Temperature (Fahrenheit): 97.6 Pain Score (1-10): 1 Nausea: No Vomiting: No Complications none Patient Status: reacts, patent, none Hydration Status: adequate Drug: none CONNIE CALDERON M.D. December 24, 2016 13:04
--- NOTE | 2016-12-24 13:06 | 48 Hour Post Anesthesia Eval ---
Post Anesthesia Evaluation Procedure: colonoscopy Date of Evaluation: December 24, 2016 Time of Evaluation: 14:50 Blood Pressure Systolic: 128 0: 57 Pulse Rate: 68 Respiratory Rate: 22 Temperature (Fahrenheit): 97.8 O2 Sat by Pulse Oximetry: 99 Airway: patent Nausea: No Vomiting: No Pain Intensity: 1 Hydration Status: adequate Cardiopulmonary Status: stable Mental Status/LOC: patient returned to baseline Follow-up Care/Observations: n/a Post-Anesthesia Complications: none Follow-up care needed: N/A CONNIE CALDERON M.D. December 24, 2016 13:06
[2016-12-24] MEDS ORDERED: NORVASC5 MG ORAL (14:49)
--- NOTE | 2016-12-24 14:52 | Internal Med Progress Note ---
Subjective Physician Name Rad Odell Attending Physician Rad Odell MD Current Medications Medications (Trade) Dose Ordered Sig/Shivani Route PRN Reason Start Time Stop Time Status Last Admin Dose Admin Acetaminophen (Tylenol) 650 mg Q4H PRN ORAL T>100.5 12/20/16 15:00 01/19/17 14:59 Al Hydroxide/Mg Hydroxide (Mylanta II) 30 ml Q6H PRN ORAL dyspepsia 12/20/16 15:00 01/19/17 14:59 Amlodipine Besylate 5 mg 5 mg DAILY ORAL 12/24/16 09:15 01/23/17 09:14 12/24/16 09:51 Atorvastatin Calcium (Lipitor) 10 mg BEDTIME ORAL 12/20/16 21:00 01/19/17 20:59 12/23/16 21:04 Clonidine HCl (Catapres) 0.1 mg Q4H PRN ORAL sbp more then 160 12/20/16 15:00 01/19/17 14:59 12/24/16 08:29 Dextrose (Dextrose 50%) STAT PRN IV Hypoglycemia 12/20/16 15:00 01/19/17 14:59 Dextrose/Sodium Chloride (D5 0.45% NS) 1,000 ml @ 75 mls/hr [id number] IV 12/20/16 15:00 01/19/17 14:59 12/23/16 23:12 Diphenhydramine HCl (Benadryl) 25 mg Q6H PRN ORAL Itching/Pruritis 12/20/16 15:00 01/19/17 14:59 Fentanyl Citrate (Sublimaze 100 mcg/2 mL) 25 mcg Q10M PRN IV Moderate Pain (Pain Scale 4-6) 12/24/16 12:30 12/24/16 16:00 Heparin Sodium (Porcine) (Heparin 5000 units/ml) 5,000 units EVERY 12 HOURS SUBQ 12/23/16 09:00 01/22/17 08:59 12/23/16 09:13 Hydralazine HCl (Apresoline) 50 mg TID ORAL 12/20/16 18:00 01/19/17 17:59 12/24/16 14:26 Lorazepam (Ativan 2mg/ml 1ml) 1 mg Q4H PRN IV agitation 12/20/16 15:00 12/27/16 14:59 Metoclopramide HCl (Reglan) 10 mg Q6H PRN IVP N/V IF ZOFRAN INEFFECTIVE 12/20/16 19:00 01/19/17 18:59 Metoprolol Succinate (Toprol XL) 50 mg Q12HR ORAL 12/24/16 21:00 01/23/17 20:59 Morphine Sulfate (Morphine Sulfate) 2 mg Q4H PRN IVP Severe Pain (Pain Scale 7-10) 12/20/16 15:00 12/27/16 14:59 Nitroglycerin (Ntg) 0.4 mg Q5M X 3 DOSES PRN SL Prn Chest Pain 12/20/16 15:00 01/19/17 14:59 Ondansetron HCl (Zofran) 4 mg Q1H PRN IVP Nausea & Vomiting 12/24/16 12:30 12/24/16 16:00 Ondansetron HCl (Zofran) 4 mg Q6H PRN IVP Nausea & Vomiting 12/20/16 15:00 01/19/17 14:59 12/23/16 21:46 Pantoprazole (Protonix) 40 mg DAILY ORAL 12/23/16 09:00 01/22/17 08:59 12/24/16 08:28 Polyethylene Glycol (Miralax) 17 gm HSPRN PRN ORAL Constipation 12/20/16 21:00 01/19/17 20:59 Promethazine HCl/ Codeine (Phenergan with Codeine) 5 ml Q6HR PRN ORAL For Cough 12/22/16 13:00 01/21/17 12:59 Sodium Chloride (Sodium Chloride 1000ml bag) 1,000 ml @ 10 mls/hr Q24H IVLG 12/24/16 12:23 12/24/16 16:00 Temazepam (Restoril) 15 mg HSPRN PRN ORAL Insomnia 12/20/16 21:00 12/27/16 20:59 Allergies: Coded Allergies: NO KNOWN DRUG ALLERGIES (Unverified Allergy, Unknown, 07/14/14) Subjective awake, alert, responsive, NAD Objective Last Vital Signs Date Time Temp Pulse Resp B/P Pulse Ox O2 Delivery O2 Flow Rate FiO2 12/24/16 14:26 128/57 12/24/16 13:31 Nasal Cannula 2.0 28 12/24/16 13:31 95 12/24/16 13:06 68 22 12/24/16 13:00 98.0 Laboratory Tests Test 12/24/16 05:20 White Blood Count 11.2 K/UL (4.8-10.8) H Red Blood Count 4.10 M/UL (4.20-5.40) L Hemoglobin 12.4 G/DL (12.0-16.0) Hematocrit 36.8 % (37.0-47.0) L Mean Corpuscular Volume 90 FL (80-99) Mean Corpuscular Hemoglobin 30.3 PG (27.0-31.0) Mean Corpuscular Hemoglobin Concent 33.7 G/DL (32.0-36.0) Red Cell Distribution Width 12.4 % (11.6-14.8) Platelet Count 244 K/UL (150-450) Mean Platelet Volume 6.0 FL (6.5-10.1) L Neutrophils (%) (Auto) 74.9 % (45.0-75.0) Lymphocytes (%) (Auto) 14.6 % (20.0-45.0) L Monocytes (%) (Auto) 9.2 % (1.0-10.0) Eosinophils (%) (Auto) 0.7 % (0.0-3.0) Basophils (%) (Auto) 0.6 % (0.0-2.0) Sodium Level 142 mEQ/L (135-145) Potassium Level 3.2 mEQ/L (3.4-4.9) L Chloride Level 104 mEQ/L (98-107) Carbon Dioxide Level 23 mEQ/L (20-30) Anion Gap 15 (5-15) Blood Urea Nitrogen 13 mg/dL (7-23) Creatinine 1.6 mg/dL (0.5-0.9) H Estimat Glomerular Filtration Rate mL/min (>60) Glucose Level 119 mg/dL (74-106) H Calcium Level 8.8 mg/dL (8.6-10.2) Intake and Output 12/23/16 12/24/16 19:00 07:00 Intake Total 615 ml 505 ml Balance 615 ml 505 ml Intake Oral 240 ml IV Total 375 ml 505 ml # Voids 4 3 Objective GENERAL: The patient is awake and responsive, no acute distress. HEAD AND NECK: Pupils are reactive to light. EOMI. NECK: Supple. No JVD. LUNGS: Good air entry. No wheezing or rales. HEART: S1 and S2. Distant heart sounds. No murmurs or gallops. ABDOMEN: Soft. Tenderness in the epigastric area. No rebound tenderness. No fluid shift. Lower abdominal area, surgical scar over suprapubic area was noted from prior surgery. EXTREMITIES: No cyanosis, clubbing, or edema. Scar was noted on the right lower extremity from the prior wound. NEUROLOGIC: Cranial nerves II through XII are grossly intact. The patient is moving all extremities. Facial asymmetry was noted. She has a prior history of stroke. PSYCHIATRIC: Mood and affect is intact. Assessment/Plan Assessment/Plan (1) Cerebral vascular disease (2) Ulcer, gastric, acute (3) Gastritis and duodenitis (4) Abdominal pain (5) Nausea & vomiting (6) HTN (hypertension) Assessment & Plan: Cont Toprol and Norvasc (7) Renal failure Assessment/Plan: Discharge home today F/U with My office in 1 week Rad Odell MD December 24, 2016 14:52
[2016-12-24] MEDS ORDERED: APRESOLINE50 MG ORAL (14:56)
[2016-12-24] MEDS ORDERED: PROTONIX40 MG ORAL (14:56)
--- NOTE | 2016-12-24 18:09 | Pulmonology Progress Note ---
Assessment/Plan Problems: (1) Accelerated hypertension (2) Intractable nausea and vomiting (3) Intractable abdominal pain (4) Leukocytosis (5) OB + stool (6) Anemia Assessment/Plan advance diet f/u wbc, no sign of infection PPI endoscopy results noted renal w/u echo results noted dc home today Subjective ROS Limited/Unobtainable: No Interval Events: had endoscpy today Allergies: Coded Allergies: NO KNOWN DRUG ALLERGIES (Unverified Allergy, Unknown, 07/14/14) Objective Last 24 Hour Vital Signs Date Time Temp Pulse Resp B/P Pulse Ox O2 Delivery O2 Flow Rate FiO2 12/24/16 17:05 129/70 12/24/16 15:45 98.0 64 20 129/70 99 Nasal Cannula 2.0 12/24/16 14:26 128/57 12/24/16 13:31 Nasal Cannula 2.0 28 12/24/16 13:31 95 Nasal Cannula 2.0 28 12/24/16 13:06 68 22 99 12/24/16 13:04 72 20 99 12/24/16 13:00 98.0 61 15 128/63 100 Nasal Cannula 3.0 12/24/16 12:45 61 15 113/60 100 Nasal Cannula 3.0 12/24/16 12:40 62 12 117/60 100 Nasal Cannula 3.0 12/24/16 12:36 97.8 64 17 112/64 100 Nasal Cannula 3.0 12/24/16 11:35 96.0 14 118/65 96 Room Air 12/24/16 09:51 76 168/94 12/24/16 08:29 168/94 12/24/16 08:28 168/94 12/24/16 08:28 76 168/94 12/24/16 07:57 96.9 76 11 168/94 98 Room Air 12/24/16 04:02 98.0 80 20 155/79 99 Room Air 12/24/16 00:05 183/92 12/23/16 23:58 97.5 84 18 189/91 97 Room Air 12/23/16 21:04 89 172/76 12/23/16 19:54 98.1 89 20 172/76 97 Room Air Intake and Output 12/23/16 12/24/16 19:00 07:00 Intake Total 615 ml 505 ml Balance 615 ml 505 ml Intake Oral 240 ml IV Total 375 ml 505 ml # Voids 4 3 General Appearance: WD/WN HEENT: normocephalic, atraumatic Respiratory/Chest: chest wall non-tender, lungs clear Cardiovascular: normal peripheral pulses, normal rate Abdomen: normal bowel sounds, soft, non tender Genitourinary: normal external genitalia Neurologic/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: 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 normal Lymphatic: no neck adenopathy Laboratory Tests 12/24/16 05:20: White Blood Count 11.2H, Red Blood Count 4.10L, Hemoglobin 12.4, Hematocrit 36.8L, Mean Corpuscular Volume 90, Mean Corpuscular Hemoglobin 30.3, Mean Corpuscular Hemoglobin Concent 33.7, Red Cell Distribution Width 12.4, Platelet Count 244, Mean Platelet Volume 6.0L, Neutrophils (%) (Auto) 74.9, Lymphocytes ( %) (Auto) 14.6L, Monocytes (%) (Auto) 9.2, Eosinophils (%) (Auto) 0.7, Basophils (%) (Auto) 0.6, Sodium Level 142, Potassium Level 3.2L, Chloride Level 104, Carbon Dioxide Level 23, Anion Gap 15, Blood Urea Nitrogen 13, Creatinine 1.6H, Estimat Glomerular Filtration Rate , Glucose Level 119H, Calcium Level 8.8 Current Medications Medications (Trade) Dose Ordered Sig/Shivani Route PRN Reason Start Time Stop Time Status Last Admin Dose Admin Acetaminophen (Tylenol) 650 mg Q4H PRN ORAL T>100.5 12/20/16 15:00 01/19/17 14:59 Al Hydroxide/Mg Hydroxide (Mylanta II) 30 ml Q6H PRN ORAL dyspepsia 12/20/16 15:00 01/19/17 14:59 Amlodipine Besylate (Norvasc) 5 mg DAILY ORAL 12/24/16 09:15 01/23/17 09:14 12/24/16 09:51 Atorvastatin Calcium (Lipitor) 10 mg BEDTIME ORAL 12/20/16 21:00 01/19/17 20:59 12/23/16 21:04 Clonidine HCl (Catapres) 0.1 mg Q4H PRN ORAL sbp more then 160 12/20/16 15:00 01/19/17 14:59 12/24/16 08:29 Dextrose (Dextrose 50%) STAT PRN IV Hypoglycemia 12/20/16 15:00 01/19/17 14:59 Dextrose/Sodium Chloride (D5 0.45% NS) 1,000 ml @ 75 mls/hr [id number] IV 12/20/16 15:00 01/19/17 14:59 12/23/16 23:12 Diphenhydramine HCl (Benadryl) 25 mg Q6H PRN ORAL Itching/Pruritis 12/20/16 15:00 01/19/17 14:59 Heparin Sodium (Porcine) (Heparin 5000 units/ml) 5,000 units EVERY 12 HOURS SUBQ 12/23/16 09:00 01/22/17 08:59 12/23/16 09:13 Hydralazine HCl (Apresoline) 50 mg TID ORAL 12/20/16 18:00 01/19/17 17:59 12/24/16 17:05 Lorazepam (Ativan 2mg/ml 1ml) 1 mg Q4H PRN IV agitation 12/20/16 15:00 12/27/16 14:59 Metoclopramide HCl (Reglan) 10 mg Q6H PRN IVP N/V IF ZOFRAN INEFFECTIVE 12/20/16 19:00 01/19/17 18:59 Metoprolol Succinate (Toprol XL) 50 mg Q12HR ORAL 12/24/16 21:00 01/23/17 20:59 Morphine Sulfate (Morphine Sulfate) 2 mg Q4H PRN IVP Severe Pain (Pain Scale 7-10) 12/20/16 15:00 12/27/16 14:59 Nitroglycerin (Ntg) 0.4 mg Q5M X 3 DOSES PRN SL Prn Chest Pain 12/20/16 15:00 01/19/17 14:59 Ondansetron HCl (Zofran) 4 mg Q6H PRN IVP Nausea & Vomiting 12/20/16 15:00 01/19/17 14:59 12/23/16 21:46 Pantoprazole (Protonix) 40 mg DAILY ORAL 12/23/16 09:00 01/22/17 08:59 12/24/16 08:28 Polyethylene Glycol (Miralax) 17 gm HSPRN PRN ORAL Constipation 12/20/16 21:00 01/19/17 20:59 Promethazine HCl/ Codeine (Phenergan with Codeine) 5 ml Q6HR PRN ORAL For Cough 12/22/16 13:00 01/21/17 12:59 Temazepam (Restoril) 15 mg HSPRN PRN ORAL Insomnia 12/20/16 21:00 12/27/16 20:59 MILAGROS URIARTE December 24, 2016 18:09
--- NOTE | 2016-12-24 18:39 | Internal Med Progress Note ---
Subjective Date of Service: December 24, 2016 Physician Name Odell,Emigdio Attending Physician Rad Odell MD Current Medications Medications (Trade) Dose Ordered Sig/Shivani Route PRN Reason Start Time Stop Time Status Last Admin Dose Admin Acetaminophen (Tylenol) 650 mg Q4H PRN ORAL T>100.5 12/20/16 15:00 01/19/17 14:59 Al Hydroxide/Mg Hydroxide (Mylanta II) 30 ml Q6H PRN ORAL dyspepsia 12/20/16 15:00 01/19/17 14:59 Amlodipine Besylate (Norvasc) 5 mg DAILY ORAL 12/24/16 09:15 01/23/17 09:14 12/24/16 09:51 Atorvastatin Calcium (Lipitor) 10 mg BEDTIME ORAL 12/20/16 21:00 01/19/17 20:59 12/23/16 21:04 Clonidine HCl (Catapres) 0.1 mg Q4H PRN ORAL sbp more then 160 12/20/16 15:00 01/19/17 14:59 12/24/16 08:29 Dextrose (Dextrose 50%) STAT PRN IV Hypoglycemia 12/20/16 15:00 01/19/17 14:59 Dextrose/Sodium Chloride (D5 0.45% NS) 1,000 ml @ 75 mls/hr [id number] IV 12/20/16 15:00 01/19/17 14:59 12/23/16 23:12 Diphenhydramine HCl (Benadryl) 25 mg Q6H PRN ORAL Itching/Pruritis 12/20/16 15:00 01/19/17 14:59 Heparin Sodium (Porcine) (Heparin 5000 units/ml) 5,000 units EVERY 12 HOURS SUBQ 12/23/16 09:00 01/22/17 08:59 12/23/16 09:13 Hydralazine HCl (Apresoline) 50 mg TID ORAL 12/20/16 18:00 01/19/17 17:59 12/24/16 17:05 Lorazepam (Ativan 2mg/ml 1ml) 1 mg Q4H PRN IV agitation 12/20/16 15:00 12/27/16 14:59 Metoclopramide HCl (Reglan) 10 mg Q6H PRN IVP N/V IF ZOFRAN INEFFECTIVE 12/20/16 19:00 01/19/17 18:59 Metoprolol Succinate (Toprol XL) 50 mg Q12HR ORAL 12/24/16 21:00 01/23/17 20:59 Morphine Sulfate (Morphine Sulfate) 2 mg Q4H PRN IVP Severe Pain (Pain Scale 7-10) 12/20/16 15:00 12/27/16 14:59 Nitroglycerin (Ntg) 0.4 mg Q5M X 3 DOSES PRN SL Prn Chest Pain 12/20/16 15:00 01/19/17 14:59 Ondansetron HCl (Zofran) 4 mg Q6H PRN IVP Nausea & Vomiting 12/20/16 15:00 01/19/17 14:59 12/23/16 21:46 Pantoprazole (Protonix) 40 mg DAILY ORAL 12/23/16 09:00 01/22/17 08:59 12/24/16 08:28 Polyethylene Glycol (Miralax) 17 gm HSPRN PRN ORAL Constipation 12/20/16 21:00 01/19/17 20:59 Promethazine HCl/ Codeine (Phenergan with Codeine) 5 ml Q6HR PRN ORAL For Cough 12/22/16 13:00 01/21/17 12:59 Temazepam (Restoril) 15 mg HSPRN PRN ORAL Insomnia 12/20/16 21:00 12/27/16 20:59 Allergies: Coded Allergies: NO KNOWN DRUG ALLERGIES (Unverified Allergy, Unknown, 07/14/14) ROS Limited/Unobtainable: No Constitutional: Reports: no symptoms HEENT: Reports: no symptoms Cardiovascular: Reports: no symptoms Respiratory: Reports: no symptoms Gastrointestinal/Abdominal: Reports: no symptoms Genitourinary: Reports: no symptoms Neurologic/Psychiatric: Reports: no symptoms Subjective 86 YO F admitted with abdominal pain. S/P endoscopy on 12/20/16; S/P colonoscopy today, 12/24/16. Cover for Int Bert-Dr Odell. Await discharge home with home health today. Objective Last Vital Signs Date Time Temp Pulse Resp B/P Pulse Ox O2 Delivery O2 Flow Rate FiO2 12/24/16 17:05 129/70 12/24/16 15:45 98.0 64 20 99 Nasal Cannula 2.0 12/24/16 13:31 28 Laboratory Tests Test 12/24/16 05:20 White Blood Count 11.2 K/UL (4.8-10.8) H Red Blood Count 4.10 M/UL (4.20-5.40) L Hemoglobin 12.4 G/DL (12.0-16.0) Hematocrit 36.8 % (37.0-47.0) L Mean Corpuscular Volume 90 FL (80-99) Mean Corpuscular Hemoglobin 30.3 PG (27.0-31.0) Mean Corpuscular Hemoglobin Concent 33.7 G/DL (32.0-36.0) Red Cell Distribution Width 12.4 % (11.6-14.8) Platelet Count 244 K/UL (150-450) Mean Platelet Volume 6.0 FL (6.5-10.1) L Neutrophils (%) (Auto) 74.9 % (45.0-75.0) Lymphocytes (%) (Auto) 14.6 % (20.0-45.0) L Monocytes (%) (Auto) 9.2 % (1.0-10.0) Eosinophils (%) (Auto) 0.7 % (0.0-3.0) Basophils (%) (Auto) 0.6 % (0.0-2.0) Sodium Level 142 mEQ/L (135-145) Potassium Level 3.2 mEQ/L (3.4-4.9) L Chloride Level 104 mEQ/L (98-107) Carbon Dioxide Level 23 mEQ/L (20-30) Anion Gap 15 (5-15) Blood Urea Nitrogen 13 mg/dL (7-23) Creatinine 1.6 mg/dL (0.5-0.9) H Estimat Glomerular Filtration Rate mL/min (>60) Glucose Level 119 mg/dL (74-106) H Calcium Level 8.8 mg/dL (8.6-10.2) Intake and Output 12/23/16 12/24/16 19:00 07:00 Intake Total 615 ml 505 ml Balance 615 ml 505 ml Intake Oral 240 ml IV Total 375 ml 505 ml # Voids 4 3 Objective General: alert, cooperative, no distress, appears stated age Head: normocephalic, without obvious abnormality, atraumatic Eyes: conjunctivae/corneas clear. PERRL, EOM's intact Throat: lips, mucosa, and tongue normal. MMM Neck: supple, symmetrical, trachea midline, and no JVD Lungs: clear to auscultation bilaterally Heart: regular rate and rhythm, S1, S2 normal, no murmur, click, rub or gallop Abdomen: soft, tender to palpation epigastric, non-distended, bowel sounds normal; no masses or organomegaly Extremities: extremities normal, atraumatic, no cyanosis or edema Pulses: 2+ and symmetric Skin: skin color, texture, turgor normal; no rashes or lesions Neurologic: grossly normal, no focal deficits Assessment/Plan Problem List: (1) Cerebral vascular disease (2) Ulcer, gastric, acute Assessment & Plan: S/P endoscopy on 12/20/16. See GI note. Cont protonix (3) Gastritis and duodenitis (4) Abdominal pain Assessment & Plan: S/P colonoscopy on 12/24/16 (5) Nausea & vomiting (6) HTN (hypertension) Assessment & Plan: Cont toprolol and hydralazine (7) Renal failure (8) Diverticulosis Status: stable Assessment/Plan Discharge today with home health EMIGDIO ODELL December 24, 2016 18:39
--- NOTE | 2016-12-24 21:00 | Procedure Note ---
DATE OF PROCEDURE: 12/24/2016 SURGEON: Asif Cardenas M.D. PROCEDURE: Colonoscopy. ANESTHESIOLOGIST: INSTRUMENT: Olympus adult flexible colonoscope. INDICATION: Anemia. REASON FOR PROCEDURE: The procedure, risks, benefits, and possible consequences, including hemorrhage, aspiration, perforation and infection, and alternative treatments, were explained to the patient/legal guardian by Dr. Asif Cardenas and the patient/legal guardian understood and accepted these risks. DESCRIPTION OF PROCEDURE: After informed consent was obtained and the patient was adequately sedated, first rectal exam was performed, which was normal. Then, the scope was advanced from the rectum into the cecum documented by appendiceal orifice, ileocecal valve, and right upper quadrant palpation. Quality of prep was very good. The patient had no obvious polyp seen in this colonoscopy examination. She had some diverticulosis in the left colon. No obvious mass was seen. Retroflexion of rectum showed evidence of large internal hemorrhoids. SUMMARY OF FINDINGS: 1. Diverticulosis. 2. Large internal hemorrhoids. RECOMMENDATIONS: 1. Treat for hemorrhoids if become symptomatic. 2. Advance diet. 3. Discharge planning per primary care. I want to thank, Dr. Odell and Dr. Lopez, for this kind referral. Asif Cardenas M.D. DR: SVEN JOB#: [id number] CC: Rad Odell M.D.; Fax#: [phone] Mora, M.D. ; Fax#: [phone]
== END 2016-12-24 21:00 | disposition home health service (06) | DRG 384 ==
LOC: ENRESERVTM → ENRESERVDT → EDBD 00:23 → EMR 00:36 → 2E 02:35 → EDBEDREQ 02:43 → 2E 05:51 → 4W 14:33
PROC: 0DB68ZX Excision of Stomach, Via Natural or Artificial Opening Endoscopic, Diagnostic (ICD-10-PCS; principal; 2016-12-20 11:20)
PROC: 0DJD8ZZ Inspection of Lower Intestinal Tract, Via Natural or Artificial Opening Endoscopic (ICD-10-PCS; 2016-12-24)
DX: K25.3 Acute gastric ulcer without hemorrhage or perforation (principal); N39.0 Urinary tract infection, site not specified; N18.3 Chronic kidney disease, stage 3 (moderate); K22.8 Other specified diseases of esophagus; K44.9 Diaphragmatic hernia without obstruction or gangrene; E78.5 Hyperlipidemia, unspecified; I12.9 Hypertensive chronic kidney disease with stage 1 through stage 4 chronic kidney disease, or unspecified chronic kidney disease; D64.9 Anemia, unspecified; Z86.73 Personal history of transient ischemic attack (TIA), and cerebral infarction without residual deficits; K22.2 Esophageal obstruction; K29.70 Gastritis, unspecified, without bleeding; K57.90 Diverticulosis of intestine, part unspecified, without perforation or abscess without bleeding; K64.8 Other hemorrhoids; R00.0 Tachycardia, unspecified; I08.0 Rheumatic disorders of both mitral and aortic valves; I67.9 Cerebrovascular disease, unspecified
CPT/HCPCS: 36415; 71010; 74176; 76700; 80048; 80053; 81003; 82150; 82270; 83690; 83735; 84100; 84484; 85007; 85025; 85610; 85730; 93005; 93306; 94003; 94150; 94760; J2250; J2405; J8499